=== PATIENT | female | born 1955 | race Caucasian/White ===

== ENCOUNTER 2021-11-18 22:48 | Inpatient (IN) | payer MEDICARE, SELFPAY ==
[2021-11-18 22:52] VITALS: PULSE 65; BMI 30.2
--- NOTE | 2021-11-18 23:26 | PCM.HP.STD ---
Documented by User: SOCO Wells 11/18/21 23:55 HPI - General General Date of Admission: 11/18/21 Date of Service: 11/18/21 Chief Complaint: Chest pain HPI Narrative SHIRA VALENZUELA, is a 66 F who presents from an outside ER with complaints of chest pain. Patient states that she was sitting watching TV when the chest pain began and it felt more like pressure like someone sitting on her chest as well as concurrent shortness of breath and diaphoresis. Patient denies any radiation of the pain to her jaw neck or arm and denies numbness and tingling. At outside facility patient received aspirin 324 mg x 1, nitroglycerin 0.4 sublingual x3 and was initiated on a heparin drip. Patient states that she has not been to a physician in approximately 15 years and therefore does not know if she has any cardiac issues. Patient states that she is fearful of physicians and so she is just avoided them. Upon arrival to the floor patient vital signs are stable and she said her chest pain remains despite the administration of 3 doses of nitro. PFSH Allergy/AdvReac Type Severity Reaction Status Date / Time No Known Allergies Allergy Verified 11/18/21 23:06 Family History Sister Breast cancer Surgical History Hx of tonsillectomy Hx of tubal ligation Surgical History no surgical history no surgical history Social History Smoking Status: Current every day smoker tobacco type: cigarettes substance use type: does not use ROS Constitutional Constitutional: Denies anorexia, chills, fatigue, fever(s), malaise or weakness Cardiovascular Cardiovascular: Reports chest pain at rest, diaphoresis and dyspnea; Denies edema, nausea or radiating jaw, neck or arm pain Respiratory/Chest Respiratory/Chest: Denies cough or wheezing Gastrointestinal Gastrointestinal: Denies abdominal pain, constipation, diarrhea, nausea or vomiting Genitourinary Genitourinary: Denies dysuria Musculoskeletal Musculoskeletal: Denies back pain, extremity pain, joint pain, joint stiffness or joint swelling Integumentary Integumentary: Denies dry skin Neurologic Neurologic: Denies abnormal gait, abnormal speech, confusion or dizziness Psychiatric Psychiatric: Denies anxiety or depression Endocrine Endocrinology: Denies change in body appearance Hematologic/Lymphatic Hematologic/Lymphatic: Denies anemia Vital Signs Vital Signs Vital Signs: 11/18/21 22:52 Pulse Rate 65 Weight Weight: 175 lb 14.862 oz Body Mass Index (BMI) 30.2 Physical Exam Const alert, oriented x3 and no apparent distress General Appearance: cooperative HEENT normocephalic and head/scalp atraumatic Eyes conjunctivae normal and no scleral icterus Neck supple General: trachea midline Lymph Lymphatic: no lymphadenopathy noted Resp normal respiratory effort, normal air movement and clear to auscultation bilaterally Cardio regular rate, regular rhythm, S1 normal heart sound, S2 normal heart sound and peripheral pulses 2+ throughout GI normal to inspection, nondistended, normoactive bowel sounds, soft to palpation and non-tender Extremity normal capillary refill and no clubbing, cyanosis or edema General Extremity: no tenderness to palpation of joints or extremities Skin General Skin Exam: no breakdown and turgor normal Lesions: no lesions Rashes: no rashes Neuro no focal motor deficits and no sensory deficits noted Speech: speech normal Motor Exam: Negative for general weakness Psych thought process normal, cooperative and affect normal Appearance: appropriate Assessment & Plan Assessment/Plan (1) Chest pain: QUALIFIERS: Chest pain type: unspecified Qualified Code(s): R07.9 - Chest pain, unspecified (2) Elevated troponin: PLAN: 1. Chest pain with elevated troponin -Admit to PCU stepdown for cardiac monitoring -Trend cardiac enzymes, 48, 677, 5991 -Consult cardiology, case discussed with Dr. Thompson, plans for heart catheterization in a.m. -Cardiac diet ordered, n.p.o. at midnight -Heparin drip initiated at outside facility per cardiology instruction, will continue with PTTs per protocol -Aspirin 81 mg p.o. daily -Atorvastatin 40 mg p.o. nightly ordered at instruction of cardiology -As needed Zofran and morphine ordered for chest pain -Nitroglycerin drip initiated -CBC, CMP, BNP, hemoglobin A1c, lipid profile, TSH ordered for a.m. -Twelve-lead EKG ordered every morning as well as as needed -Oxygen per protocol -Daily weights -Echocardiogram ordered for a.m. -Labs reviewed from outside facility within normal limits. DVT prophylaxis-patient on heparin drip This patient was seen by SOCO Wells under the supervision of Dr. Pelaez. 30 minutes spent in clinical coordination of patient's plan of care. Documented by User: Dr. Ravi Pelaez MD 11/19/21 00:34 HPI - General General Date of Admission: 11/18/21 PFSH Allergy/AdvReac Type Severity Reaction Status Date / Time No Known Allergies Allergy Verified 11/18/21 23:06 Family History Sister Breast cancer Surgical History Hx of tonsillectomy Hx of tubal ligation Surgical History no surgical history Social History Smoking Status: Current every day smoker tobacco type: cigarettes substance use type: does not use Charges/Coding Addendum Addendum: Patient is a 66-year-old female with a significant history of tobacco abuse who does not see a doctor and who presented to outside hospital ED with excruciating substernal chest pain that started on the same day of presentation. The pain radiated to her left upper arm The pain improves with belching. There are no aggravating factors to the pain. The pain started when patient was at rest watching TV. Outside hospital EKG shows some abnormality so the plan was to transfer patient to our hospital for further work-up. Repeat troponin at outside hospital was severely elevated. ED doc discussed the case with sterile processing technologist on-call at our hospital. Physical exam: General: Well-nourished, well-developed. Head: Normocephalic, atraumatic, no tenderness Eyes: PERRLA, EOMI ENT, no trauma, moist mucous membranes, no rhinorrhea Neck: Nontender, full range of motion, no spinal tenderness, deformities, step-off CVS: Regular rate and rhythm. S1-S2 present. No murmur, gallop or rub. Respiratory : Tachypnea; clear to auscultation bilaterally, chest wall nontender, no wheezing Abdomen: Soft, nontender, nondistended, normal bowel sounds, no masses : Deferred Back: Nontender, no CVA tenderness, no midline spinal tenderness, deformities, step-offs Extremities: Nontender full range of motion, no trauma Skin: Normal color, no trauma, abrasions Neuro: Alert, oriented, cranial nerves II through XII grossly intact. Psychiatry: Normal mood. Normal affect. Not depressed. Not anxious. Non STEMI Chest x-ray obtained at outside hospital ED was visualized and independently interpreted: No acute cardiopulmonary process noted Actual EKG tracing was independently visualized showed ST/T wave inversions in inferior leads particularly aVL. Outside hospital labs reviewed showed initial troponin of 48.7 (normal 0-51.4). Repeat troponin was 677. High sensitivity troponin at our hospital was 5991. ASA 81 mg p.o. daily ordered. Placed on heparin drip and nitroglycerin drip. Morphine as needed for pain ordered We will check lipid panel. Statin: Lipitor ordered. Trend CBC and CMP Cardiology consult. Tobacco abuse Counselled. DVT Prophylaxis: Not indicated as patient has been started on Heparin drip. Visit Charges Inpatient E&M: 95664 Init Hosp L3
[2021-11-18 23:40] LABS: Magnesium 2.4 mg/dL (1.6-2.6); Troponin-I HS 5991 pg/mL (3.0-54.0)
[2021-11-18] MEDS: HEPARIN/D5w 25,000 UNITS 25,000 UNITS/250 ML IV.SOLN. 11 UNITS IV (23:41)
[2021-11-18 23:42] VITALS: BP 117/62
[2021-11-18] MEDS: Nitroglycerin Infusion 250 ML 3 MG IV (23:42)
[2021-11-18] MEDS: 0.9% Normal Saline 1,000 ML 100 ML IV (23:43)
[2021-11-19] VITALS (23 sets, daily range): BP systolic 97–121; BP diastolic 55–104; PULSE 66–83; RESP 16–20; TEMP 36.4–36.6; O2SAT 94–98
[2021-11-19 04:11] LABS: Hematocrit 39.2 % (37-47); Hemoglobin 13.5 g/dL (12.0-15.0); Mean Corp Hgb Conc 34.4 g/dL (32-36); Mean Corpuscular Hgb 30.7 pg (27.0-32.0); Mean Corpuscular Volume 89.1 fL (81-99); Mean Platelet Vol. 9.8 fl (6.2-12.0); Platelet Count 205 K/mm3 (150-450); RBC Distribution Width CV 13.2 % (11.6-14.6); RBC Distribution Width SD 42.8 fl (35.1-43.9); White Blood Count 7.7 K/mm3 (4.4-11.0)
[2021-11-19 04:36] LABS: BNP,B-Type NATRIURETIC PEPTIDE 142.6 pg/mL (0-100)
[2021-11-19 04:38] LABS: ALB/GLOB Ratio 0.8 RATIO (0.9-2.4); AST(SGOT) 181 U/L (15-37); Alanine Aminotransfer ALT/SGPT 100 U/L (13-56); Albumin, Serum 3.2 g/dL (3.2-5.0); Alkaline Phosphatase 78 U/L (45-117); Anion Gap 5 (5-15); BUN 15 mg/dL (7-18); BUN/Creat Ratio 19.3 RATIO (10-20); Calcium,Total 8.1 mg/dL (8.5-10.1); Chloride 111 mmol/L (98-107); Cholesterol 229 mg/dL (200); Creatinine, Serum 0.78 mg/dL (0.55-1.02); EST Glomerular Filtration Rate 79 mL/min (>60); Est Glom Filt Rate - Afr Amer 95 mL/min (>60); Estimated Creatinine Clearance 47.14 ml/min; Globulin 4.2 g/dL (2.2-4.2); Glucose 102 mg/dL (74-106); High Density Lipoprotein 53 mg/dL; Potassium 3.6 mmol/L (3.5-5.1); Protein, Total 7.4 g/dL (6.4-8.2); Sodium Level 142 mmol/L (136-145); Thyroid Stim Hormone (TSH) 3.88 uIU/mL (0.358-3.74); Triglycerides 109 mg/dL; Very Low Density Lipoprotein 22 mg/dL (5-40)
--- NOTE | 2021-11-19 05:55 | ECHOD_ITS ---
Reason For Study: CHEST PAIN Procedure This was a 2D Doppler, Color Flow transthoracic echocardiogram. Patient in supine position during exam. Exam performed portable in ICU/CCU. Left Ventricle Normal LV size. Left ventricular systolic function is normal. The estimated ejection fraction is 65 %. Stage 1 diastolic dysfunction. No regional wall motion abnormalities noted. Right Ventricle Normal RV size. Normal systolic function. Atria Normal left atrium. Normal right atrium. Mitral Valve Normal mitral valve. Mild-Moderate (1-2+) mitral valve insufficiency. Tricuspid Valve Normal tricuspid valve. Mild (1+) tricuspid valve insufficiency. Pulmonary artery systolic pressure is 44 mmHg. Aortic Valve Trisinus/trileaflet aortic valve. Moderate focal aortic valve calcification. Peak aortic valve gradient 63 mmHg. Mean aortic valve gradient 41 mmHg. Severe aortic stenosis. Pulmonic Valve Normal pulmonic valve. Great Vessels Normal aortic root. The pulmonary artery is normal size. Normal inferior vena cava. Pericardium/Pleural No pericardial effusion. MMode/2D Measurements & Calculations LVIDd: 4.3 cm IVSd: 0.85 cm LVOT diam: 2.0 cm LVIDs: 3.2 cm LVPWd: 0.88 cm LVOT area: 3.1 cm2 RVDd: 3.4 cm FS: 27.1 % Ao root diam: 3.1 cm LAV(MOD-bp): 41.8 ml LVAd ap4: 31.4 cm2 LAV(MOD-bp) Indexed: 22.6 ml/m2 LVLd ap4: 8.3 cm LAV(MOD-sp2): 41.7 ml EDV(MOD-sp4): 95.1 ml LAV(MOD-sp4): 41.5 ml EDV(sp4-el): 101.3 ml LVAs ap4: 17.2 cm2 LVLs ap4: 6.7 cm ESV(MOD-sp4): 36.8 ml ESV(sp4-el): 37.1 ml EF(MOD-sp4): 61.3 % EF(sp4-el): 63.4 % SV(MOD-sp4): 58.3 ml SV(sp4-el): 64.2 ml LA A4 area: 15.9 cm2 LA dimension(2D): 3.2 cm RA A4 area: 10.9 cm2 Time Measurements MV dec time: 0.25 sec Doppler Measurements & Calculations MV E max johnson: 79.9 cm/sec Lat Peak E' Johnson: 9.9 cm/sec Med Peak E' Johnson: 5.8 cm/sec MV A max johnson: 100.4 cm/sec E/E' lat: 8.1 E/E' med: 13.8 MV E/A: 0.80 Ao V2 max: 396.6 cm/sec LV V1 max: 85.8 cm/sec SV(LVOT): 61.7 ml Ao max P.0 mmHg LV V1 max P.9 mmHg Ao V2 mean: 307.6 cm/sec LV V1 mean P.7 mmHg Ao mean P.8 mmHg LV V1 mean: 61.2 cm/sec Ao V2 VTI: 104.2 cm LV V1 VTI: 19.9 cm RODRIGUEZ(I,D): 0.59 cm2 RODRIGUEZ(V,D): 0.67 cm2 PA V2 max: 86.9 cm/sec TR max johnson: 314.2 cm/sec TR max P.5 mmHg ECHO/Echo Complete Interpretation Summary Normal LV size. Left ventricular systolic function is normal. The estimated ejection fraction is 65 %. Mild-Moderate (1-2+) mitral valve insufficiency. Stage 1 diastolic dysfunction. Pulmonary artery systolic pressure is 44 mmHg. Severe aortic stenosis. Ordering Physician: Kimberly Chaney Performed By: Margy Bañuelos RDCS
[2021-11-19 07:34] LABS: Hemoglobin A1c 5.3 % (3.8-5.6)
--- NOTE | 2021-11-19 08:12 | PCM.CONS.C ---
Assessment & Plan Assessment/Plan (1) Non-ST elevation (NSTEMI) myocardial infarction: PLAN: She presents with a non-ST elevation myocardial infarction. She has no previous risk factors, other than smoking which she continues to do. My recommendations at this time will be as follows. : Start aspirin Start a beta-marquita with Toprol-XL 25 mg a day High intensity statin We will schedule a cardiac catheterization within the next few hours. The risks benefits and alternatives have been explained to her she understands and agrees to proceed. Depending on the results further recommendations will be made. Addendum: Cardiac catheterization demonstrated the following: Short normal left main coronary artery. Left anterior descending artery with moderate 50% mid segment stenosis. First diagonal vessel with 90% proximal stenosis. Left circumflex artery which is a large vessel with proximal 70% stenosis and 2 obtuse marginal branches which collateralized with the right coronary artery system. The second obtuse marginal branch has a 80% ostial stenosis. The circumflex artery continues to a large obtuse marginal branch which is totally occluded with distal ghost collateral filling Dominant right coronary artery which is totally occluded proximally with [id number] collaterals Calcified aortic valve with moderate stenosis.-We will confirm on echocardiogram Mildly reduced left ventricular systolic function estimated at 50%. Based on the above angiographic, hemodynamic, and other findings would recommend surgical evaluation for coronary bypass surgery plus or minus aortic valve replacement. Arrangements will be made to transfer the patient to a tertiary care facility [facility]. Above discussed with interventional cardiology. Thank you for allowing me to participate in the care of your patient. Please don't hesitate to call if any issues arise. HPI Consult Data Date of Consult: 11/19/21 HPI Narrative HPI Narrative: SHIRA VALENZUELA, is a 66 F who presents from an outside ER with complaints of chest pain. Patient states that she was sitting watching TV when the chest pain began and it felt more like pressure like someone sitting on her chest as well as concurrent shortness of breath and diaphoresis. She says that she has not visited any physician in years. Patient denies any radiation of the pain to her jaw neck or arm and denies numbness and tingling. At outside facility patient received aspirin 324 mg x 1, nitroglycerin 0.4 sublingual x3 and was initiated on a heparin drip. Patient states that she has not been to a physician in approximately 15 years and therefore does not know if she has any cardiac issues. Patient states that she is fearful of physicians and so she is just avoided them. Upon arrival to the floor patient vital signs are stable and she said her chest pain remains despite the administration of 3 doses of nitro. She was started on a nitroglycerin drip. Cardiac enzymes were obtained which were significantly abnormal and cardiology was consulted for further evaluation and management. She has not had any dizziness or near syncope. PFSH Allergy/AdvReac Type Severity Reaction Status Date / Time No Known Allergies Allergy Verified 11/18/21 23:06 Family History Sister Breast cancer Surgical History Hx of tonsillectomy Hx of tubal ligation Surgical History no surgical history Social History Smoking Status: Current every day smoker tobacco type: cigarettes substance use type: does not use ROS Constitutional Constitutional: Denies fever(s) or weight loss Eyes Eyes: Reports systems reviewed and no addt'l complaints, except as documented ENT HEENT: Reports systems reviewed and no addt'l complaints, except as documented Cardiovascular Cardiovascular: Reports chest pain at rest and chest pain with activity; Denies dyspnea at rest, dyspnea on exertion, edema, palpitations or paroxysmal nocturnal dyspnea Respiratory/Chest Respiratory/Chest: Denies dyspnea on exertion, productive cough, shortness of breath at rest or shortness of breath with exertion Gastrointestinal Gastrointestinal: Denies change in bowel habits, nausea, vomiting or weight changes Genitourinary Genitourinary: Denies difficulty urinating Musculoskeletal Musculoskeletal: Denies joint stiffness or muscle weakness Integumentary Integumentary: Denies lesions Neurologic Neurologic: Denies dizziness or syncope Psychiatric Psychiatric: Denies anxiety Endocrine Endocrinology: Denies excessive sweating or fatigue Hematologic/Lymphatic Hematologic/Lymphatic: Denies anemia Allergic/Immunologic Allergic/Immunologic: Denies seasonal rhinorrhea Physical Exam Const alert, oriented x3 and no apparent distress General Appearance: cooperative HEENT hearing grossly normal bilaterally Head and Scalp: atraumatic Eyes EOMs intact bilaterally Neck General: normal visual inspection Chest inspection of chest normal and palpation of chest normal Resp normal respiratory effort Auscultation: clear to auscultation bilaterally Cardio regular rate, regular rhythm, S1 normal heart sound and S2 normal heart sound Jugular Venous Distention: JVD GI normal to inspection, nondistended, normoactive bowel sounds Extremity normal capillary refill and no pedal edema Peripheral Pulses: Yes pulses 2+ throughout and femoral pulses present Skin no rashes or lesions noted Neuro oriented x3 and CN's II-XII intact bilaterally Psych Appearance: grossly normal and appropriate Risk Stratification Risk Stratification Applicable: Yes Age >/= 65: Yes >/= 3 CAD Risk Factors (HTN, HLD, DM, family hx of CAD, or current smoker): No Aspirin Use in the Past 7 Days: No Severe Angina (>/= episodes in 24 hours): Yes EKG ST Changes >/= 0.5mm: No Positive Cardiac Marker: Yes KANG Risk Stratification Score: 3 KANG % Risk: 13% Risk Objective Data Vital Signs: Vital Signs Pulse Resp BP Pulse Ox 66 16 120/73 96 11/19/21 06:00 11/19/21 06:00 11/19/21 06:00 11/19/21 06:00 Oxygen Delivery Method Room Air Weight: 172 lb 13.478 oz Body Mass Index (BMI) 30.2 Intake & Output: Intake and Output for Last 24 Hours 11/17/21 11/18/21 11/19/21 23:59 23:59 23:59 Intake Total 71.32 / 71.32 Output Total 700 / 700 Balance -628.68 / -628.68 Lab / Micro Data Result Diagrams: 11/19/21 04:00 11/19/21 04:00 Labs: Laboratory Results - last 24 hr 11/18/21 23:13: Magnesium 2.4, Troponin I High Sens 5991 H* 11/19/21 04:00: WBC 7.7, RBC 4.40, Hgb 13.5, Hct 39.2, MCV 89.1, MCH 30.7, MCHC 34.4, RDW Std Deviation 42.8, RDW Coeff of Asha 13.2, Plt Count 205, MPV 9.8 11/19/21 04:00: Sodium 142, Potassium 3.6, Chloride 111 H, Carbon Dioxide 26.0, Anion Gap 5, BUN 15, Creatinine 0.78, Estim Creat Clear Calc 47.14, Est GFR (MDRD) Af Amer 95, Est GFR (MDRD) Non-Af 79, BUN/Creatinine Ratio 19.3, Glucose 102, Calcium 8.1 L, Total Bilirubin 0.50, AST 181 H, ALT 100 H, Alkaline Phosphatase 78, Total Protein 7.4, Albumin 3.2, Globulin 4.2, Albumin/Globulin Ratio 0.8 L, Triglycerides 109, Cholesterol 229 H, LDL Cholesterol 154 H, VLDL Cholesterol 22, HDL Cholesterol 53, TSH 3.88 H 11/19/21 04:00: Hemoglobin A1c 5.3 11/19/21 04:00: B-Natriuretic Peptide 142.6 H 11/19/21 04:00: APTT 68.0 H Cardiology Labs/Tests 11/18/21 23:13: Magnesium 2.4 11/19/21 04:00: WBC 7.7, RBC 4.40, Hgb 13.5, Hct 39.2, MCV 89.1, MCH 30.7, MCHC 34.4, Plt Count 205, MPV 9.8 11/19/21 04:00: Sodium 142, Potassium 3.6, Chloride 111 H, Carbon Dioxide 26.0, Anion Gap 5, BUN 15, Creatinine 0.78, Est GFR (MDRD) Af Amer 95, Est GFR (MDRD) Non-Af 79, BUN/Creatinine Ratio 19.3, Glucose 102, Calcium 8.1 L, Total Bilirubin 0.50, Triglycerides 109, Cholesterol 229 H, LDL Cholesterol 154 H, VLDL Cholesterol 22, HDL Cholesterol 53 11/19/21 04:00: Hemoglobin A1c 5.3 11/19/21 04:00: B-Natriuretic Peptide 142.6 H 11/19/21 04:00: APTT 68.0 H Rhythm: EKG: Normal sinus rhythm with no acute changes ECHO: Stress Test: Cardiac Cath: PCI: CT Surgery: Holter monitor: EPS: PPM: CXR: Chest CT Scan:
[2021-11-19] MEDS: Aspirin E.C. 81 MG Tablet PO (08:54)
[2021-11-19] MEDS: 0.9% Normal Saline 1,000 ML 100 ML IV (08:57)
--- NOTE | 2021-11-19 09:20 | NURSING ---
Parachute Taper RN at bedside, report given and patient transported to labor union business representative for procedure.
--- NOTE | 2021-11-19 10:00 | EKG12_ITS ---
Test Reason : PRE HEART CATH Blood Pressure : / mmHG Vent. Rate : 069 BPM Atrial Rate : 069 BPM P-R Int : 162 ms QRS Dur : 080 ms QT Int : 398 ms P-R-T Axes : 065 035 091 degrees QTc Int : 426 ms Normal sinus rhythm Normal ECG No previous ECGs available Confirmed by EDWIGE BELTRÁN, MITA ([id number]), brands editor CHAYO MG ([id number]) on 11/23/2021 1:53:01 PM Referred By: RASHEED Confirmed By:STEPHAN GIBBONS MD
--- NOTE | 2021-11-19 11:02 | CL.D_ITS ---
Patient Name: SHIRA VALENZUELA Study Date: 11/19/2021 Performing: Miki Mendoza MD Ht: 64.17 inches 163 cm : 1955 Wt: 171.96 lbs 78 kg Age: 66 Gender: female BSA: 1.84 PROCEDURE(S) PERFORMED DC01-(50068)LHC/COR/LV CLINICAL PROFILE AND INDICATIONS Indications: ACS <= 24 hrs Heart Failure: None Stress/Imaging Stress/Image Study Performed: No CONCLUSIONS Severe coronary artery disease in the face of a non-STEMI with severe disease of the diagonal vessel, totally occluded right coronary artery, severely diseased left circumflex artery and moderate aortic stenosis. RECOMMENDATIONS Surgery consult for coronary revascularization Surgery consult for Valve Replacement surgery DESCRIPTION OF PROCEDURE The patient arrived to the procedure lab. The risks and benefits of the procedure as well as a full d escription of our services here and current unavailability of surgical backup were fully explained to the patient and/or their significant other prior to the catheterization. The Timeout was completed, verifying the correct patient and procedure. The patient's procedural site was prepped and draped in the usual fashion. Local anesthetic was given subcutaneously to right radial region with Lidocaine 2% . Local anesthetic was given subcutaneously to right groin region with Lidocaine 2%. Using a modified Seldinger technique, arterial access was obtained via the right radial artery, a 6Fr sheath was inse rted., arterial access was obtained via the right femoral artery, a 5Fr sheath was inserted. Left Co ronary Artery selective angiography was performed in multiple views using a 5 Fr. 4.0 Anderson catheter. unable to engage coronary arteries. abort radial. obtain femerol access. Left Coronary Artery selective angiography was performed in multiple views using a 5 Fr. JL4 catheter. Right Bernstein ry Artery selective angiography was then performed in multiple views using a 5 Fr. 3DRC (Cooper ca theter. Left Ventriculography was performed in DAVIES projection using a 5 Fr. Pigtail catheter. LV to A O pullback pressures were then recorded.The arterial sheath was pulled and a TR Band was applied for hemostasis. 10cc of air applied. The arterial sheath was pulled and manual compression applied until hemostasis is achieved. CORONARY ANGIOGRAPHY DOMINANCE: Right Dominant LEFT HEART ASSESSMENT Left Ventricular Ejection Fraction: by LV Gram 50 % Normal LV wall motion Normal Left Ventricular systolic function Elevated Left Ventricular End Diastolic Pressure LEFT MAIN: Angiographically normal LEFT ANTERIOR DESCENDING ARTERY: Moderate mid segment 50 to 60% stenosis DIAGONAL 1: Proximal - Long 90% stenosis CIRCUMFLEX ARTERY: Proximal circumflex artery with 70% eccentric stenosis and 2 obtuse marginal branc hes with a second branch having an 80 to 90% ostial stenosis. The vessel then continues to a large o btuse marginal branch which is subtotally occluded. Collaterals are seen from the obtuse marginal br anch to the distal right coronary artery all the way up to the mid segment RIGHT CORONARY ARTERY: Totally occluded proximal right coronary artery VALVE FINDINGS: Aortic Valve Calcification - moderate Aortic Valve Stenosis - moderate COMPLICATIONS No Complications PROCEDURE MEDICATIONS Fentanyl 25 mcg IV Versed .05 mg IV Versed 1 mg IV Oxygen: 2 L/min via nasal cannula Heparin given IA 11/19/2021 10:11:21 Nitro glycerin 25mg / 250ml D5W @ 5 mcg/min IV on arrival from ICU 11/19/2021 09:36:38 Nitro glycerin 25mg / 250ml D5W @ 0 mcg/min discontinued 11/19/2021 10:48:13 SUMMARY OF HEMODYNAMIC DATA Time AIR REST ECG 09:34:18 Art 135/69 (94) 10:04:40 AO 127/72 (93) SA 10:19:49 LV 163/22, 38 10:43:08 LV 163/21, 34 10:43:14 LV 162/14, 30 10:44:16 LV 165/22, 31 10:44:27 LVp 156/17, 28 10:44:35 AOp 128/73 (96) 10:44:40 Signed By Miki Mendoza MD On 11/19/2021 11:01:14 Miki Mendoza MD
[2021-11-19] MEDS: 0.9% Normal Saline 1,000 ML 60 ML IV (11:51)
--- NOTE | 2021-11-19 12:19 | DS.PCM_ITS ---
Providers Date of Admission: 11/18/21 Date of Discharge: 11/19/21 Primary Care Physician: Aleah Primary Care Phys Consultations 11/18/21 22:52 Consult: Cardiology Routine Consulting Provider: Marielle Thompson Reason for Consult: Chest pain, elevated trop EMERGENT Consult: No MD Notified: Yes Date Notified: 11/18/21 Time Notified: 22:52 Method of Notification: Provider Initiated Method of Consult:: In-Person Reason For Visit: UNSTABLE ANGINA Diagnosis Discharge Diagnosis (1) Non-ST elevation (NSTEMI) myocardial infarction: Status: Acute Code(s): I21.4 - Non-ST elevation (NSTEMI) myocardial infarction Hospital Course Operations None Procedures Cardiac catheterization Summary of Care Provided Minutes Spent on Discharge: 39 Hospital Course: Mrs. Rivers is a 66-year-old white female who presented to an outside facility emergency department on 11/18/2021 with a chief complaint of chest pain. The patient reported that she was sitting watching TV when the chest pain began and it felt like pressure and that someone sitting on her chest. She had associated shortness of breath and diaphoresis. She denied any radiation of the pain. She did indicate that she had been having symptoms on and off of chest like pressure for a few weeks but had been ignoring them. The patient does not follow regularly with physicians as she is fearful of them and just avoids them. At the outside facility emergency department she received a full dose aspirin, sublingual nitro x3 and was initiated on a heparin drip. Her EKG showed abnormalities and while her initial troponin was within normal range a repeat troponin was elevated and she was therefore transferred to our facility after the case was discussed with the low altitude air defense officer on-call. She was maintained on a heparin drip and was taken to the cardiac [facility] on the morning of 11/19/2021 where she was found to have severe coronary artery disease in the diagonal as well as a totally occluded RCA and a severely diseased left circumflex. She was also found to have moderate aortic stenosis. Lipids were obtained during her hospitalization she was found to have a total cholesterol of 229 with an LDL of 154 and HDL of 53 and a VLDL of 22. She was also found to have transaminitis with an ALT of 100 and AST of 181. The etiology of this is unclear at this time. She was maintained on a statin however I would recommend further work-up with regards to these. Given these findings the case was discussed with cardiothoracic surgery at [facility] (Dr. Capone) who recommended transfer to the medical service with consultation to cardiothoracic surgery. She was felt to be stable for the telemetry for and was accepted for transfer by Dr. Bravo at [facility]. She was discharged to [facility] on 11/19/2021 for further cardiac intervention. Discharge diagnoses: NSTEMI Severe diffuse coronary artery disease Moderate aortic stenosis Hyperlipidemia Transaminitis BNP elevation Tobacco abuse Marked kyphoscoliosis Physical Exam Const alert, oriented x3 and no apparent distress Constitutional Narrative: Overweight upper middle-aged white female who appears older than the stated age, sitting up in bed, nontoxic, appears comfortable at this time, currently denying chest pain General Appearance: cooperative, comfortable, well kempt and well developed Orientation / Consciousness: awake Exam Limitations: no limitations Nutritional Appearance: overweight HEENT normocephalic, head/scalp atraumatic, hearing grossly normal bilaterally and moist oral mucous membranes HEENT Narrative: Dentition is fair, Mallampati is 2-3, no thrush Eyes PERRL, EOMs intact bilaterally and conjunctivae normal Eyes Narrative: Scleral icterus Neck no lymphadenopathy, supple and no JVD Neck Narrative: Trachea midline, no thyroid enlargement Resp normal respiratory effort, no retractions, no use of accessory muscles and clear to auscultation bilaterally Resp Narrative: Marked thoracic kyphoscoliosis with right rotation and left side bending, markedly diminished diffusely with few scattered end expiratory wheeze Auscultation: wheezes; Negative for crackles, rales or rhonchi Cardio regular rate, regular rhythm, S1 normal heart sound, S2 normal heart sound, no r ub, no gallops, no clicks and no JVD; Negative for no murmurs Cardio Narrative: 2 out of 6 to 3 out of 6 systolic murmur GI normal to inspection, nondistended, normoactive bowel sounds, soft to palpation, non-tender and non-distended Extremity no clubbing, cyanosis or edema Skin no rashes or lesions noted, no wounds, skin turgor normal and no jaundice Neuro oriented x3, CN's II-XII intact bilaterally, moves all extremities, no focal motor deficits and no sensory deficits noted Sensorium / Orientation: awake and alert Speech: speech normal Psych affect normal Weight / BMI Weight Weight: 78.4 kg Body Mass Index (BMI) 30.2 ABG / Lab / Microbiology Data Result Diagrams: 11/19/21 04:00 11/19/21 04:00 Laboratory: Laboratory Results - last 24 hr 11/18/21 23:13: Magnesium 2.4, Troponin I High Sens 5991 H* 11/19/21 04:00: WBC 7.7, RBC 4.40, Hgb 13.5, Hct 39.2, MCV 89.1, MCH 30.7, MCHC 34.4, RDW Std Deviation 42.8, RDW Coeff of Asha 13.2, Plt Count 205, MPV 9.8 11/19/21 04:00: Sodium 142, Potassium 3.6, Chloride 111 H, Carbon Dioxide 26.0, Anion Gap 5, BUN 15, Creatinine 0.78, Estim Creat Clear Calc 47.14, Est GFR (MDRD) Af Amer 95, Est GFR (MDRD) Non-Af 79, BUN/Creatinine Ratio 19.3, Glucose 102, Calcium 8.1 L, Total Bilirubin 0.50, AST 181 H, ALT 100 H, Alkaline Phosphatase 78, Total Protein 7.4, Albumin 3.2, Globulin 4.2, Albumin/Globulin Ratio 0.8 L, Triglycerides 109, Cholesterol 229 H, LDL Cholesterol 154 H, VLDL Cholesterol 22, HDL Cholesterol 53, TSH 3.88 H 11/19/21 04:00: Hemoglobin A1c 5.3 11/19/21 04:00: B-Natriuretic Peptide 142.6 H 11/19/21 04:00: APTT 68.0 H Meaningful Use Info Meaningful Use Diagnoses (Choose all that apply): AMI AMI/Post PCI/Angioplasty Aspirin given w/in 24hrs of arrival?: Yes ASA at discharge?: Yes Statins at discharge?: Yes Jaylen/ARB at discharge?: No Reason Jaylen/ARB not ordered:: Hypotension Beta Duc at discharge?: No Reason Beta Duc not ordered:: Hypotension Done w/ Acute IL measure.: Yes Discharge Plan Admission Admit Date/Time: 11/18/21 23:48 Primary Reason for Your Visit: Chest pain Attending Provider: Rula Malik Primary Care Provider: Care Physician,No Primary Consulting Providers: Marielle Thompson Discharge Orders/Prescriptions Referrals / Follow Up: Care Physician,No Primary [Primary Care Provider] - Disposition Discharge Orders: Discharge Patient (Routine); Ordered 11/19/21 Ordered By: Dr. Miki Mendoza Charges/Coding Visit Charges Inpatient E&M: 23843 Disch Hosp
--- NOTE | 2021-11-19 14:10 | CASEMGMT ---
[facility] is in-network with patient's insurance.
--- NOTE | 2021-11-19 16:18 | NURSING ---
[facility] personnel at bedside preparing patient for transport to [facility]. Patient awake, alert and oriented, verbalizes understanding of why she is being transferred. Patient's at bedside, Address for [facility] and directions given.
== END 2021-11-19 16:35 | disposition short-term general hospital (02) | DRG 282 ==
PROVIDERS: Nurse Practitioner Family; Admitting Provider Hospitalist; Visit Provider Internal Medicine
DX: I21.4 Non-ST elevation (NSTEMI) myocardial infarction (principal); E66.3 Overweight; E78.5 Hyperlipidemia, unspecified; F17.210 Nicotine dependence, cigarettes, uncomplicated; I25.10 Atherosclerotic heart disease of native coronary artery without angina pectoris; I35.0 Nonrheumatic aortic (valve) stenosis; M41.9 Scoliosis, unspecified; R74.01 Elevation of levels of liver transaminase levels; Z68.30 Body mass index [BMI] 30.0-30.9, adult
CPT/HCPCS: 80053; 80061; 83036; 83735; 83880; 84443; 84484; 85027; 85730; 93005; 93306; 93458; 99152; 99153; J7030; C1769; C1894

== ENCOUNTER → 2022-02-14 | Outpatient (CLI) | payer MEDICARE, SELFPAY ==
[2022-02-14 11:08] LABS: Anion Gap 8 (5-15); BUN 15 mg/dL (7-18); BUN/Creat Ratio 16.3 RATIO (10-20); Calcium,Total 8.8 mg/dL (8.5-10.1); Chloride 104 mmol/L (98-107); Creatinine, Serum 0.92 mg/dL (0.55-1.02); EST Glomerular Filtration Rate 64 mL/min (>60); Est Glom Filt Rate - Afr Amer 78 mL/min (>60); Glucose 107 mg/dL (74-106); Magnesium 2.3 mg/dL (1.6-2.6); Potassium 4.2 mmol/L (3.5-5.1); Sodium Level 139 mmol/L (136-145)
== END | disposition home or self-care (01) ==
LOC: LAB 09:59
PROVIDERS: PCP Nurse Practitioner; Referring Provider Internal Medicine Cardiovascular Disease; Visit Provider Internal Medicine Cardiovascular Disease
DX: Z95.3 Presence of xenogenic heart valve (principal); Z49.02 Encounter for fitting and adjustment of peritoneal dialysis catheter
CPT/HCPCS: 36415; 80048; 83735

== ENCOUNTER → 2022-03-13 | Outpatient (CLI) | payer MEDICARE, SELFPAY ==
--- NOTE | 2022-03-13 13:06 | CR.HP_ITS ---
CR - History & Physical - General Arrival date:: 03/13/22 Arrival time:: 13:06 Date of Referral:: 02/14/22 Date of CR Evaluation:: 03/13/22 Referring Physician: Dr. Miki Mendoza Primary Diagnosis: CABG - History of Present Cardiac Event Onset Date: Enter Onset Date of cardiac illnesses in Comment field below Acute Myocardial Infarction within 12 months:: Yes Coronary Artery Bypass Graft:: Yes - 11/19/2021 - Sleep Disorder Evaluation Hx of Sleep Apnea: No Do you snore loudly (louder than talking or can be heard through closed doors)?: No Do you often feel tired/ fatigued/ sleepy during daytime?: No Has anyone observed you stop breathing during sleep?: No History of Hypertension (for STOP score): No STOP Results: Negative - Medications Home Medications: Ambulatory Orders Medication Instructions Recorded allopurinol 100 mg tablet 100 mg PO DAILY 02/13/22 aspirin 81 mg chewable tablet 1 tab PO DAILY 02/13/22 atorvastatin 20 mg tablet 20 mg PO DAILY 02/13/22 clopidogrel 75 mg tablet 75 mg PO DAILY 02/13/22 mirtazapine 15 mg tablet 15 mg PO QHS 02/13/22 - Allergies Allergies/Adverse Reactions: Allergies No Known Allergies Allergy (Verified 01/29/22 13:04) Advanced Directives - Advanced Directives Power of Flat Spring Assembler: No Living Will: No Advance Directives Information Provided: Yes Advance Directives on File: No DNR Order?:: No Past Medical History - Covid-19 Screening Fever: No Unexplained muscle aches: No Current respiratory symptoms: No Upper respiratory infections symptoms: No Gastro-intestinal symptoms: No [id number]-[id number] symptoms: No Has tested positive for COVID-19 in last 30 days: No Had contact w/person w/symptoms or Covid-19 (+) last 14 days: No Has High Risk Exposures ID'd by Health dept/Inf Control team: No 65 years or older:: No Lives in Assisted Living facility:: No Has a chronic lung disease or moderate to severe asthma:: No Has a serious heart condition:: Yes Immunocompromised:: No Severely obese (Body Mass Index of 40 or higher):: No Diabetic:: No Has chronic kidney disease undergoing dialysis:: No Has liver disease:: No - Past Medical Illness Medical History: Past Medical History (Last Reviewed 02/14/22 @ 16:[address] Miki Mendoza MD) Acute postoperative renal failure Onset Date: 11/2021 N99.0 on HD/ completed 12/[address] disease [address] [place] coronary artery without angina pectoris I25.10 History of non-ST elevation myocardial infarction (NSTEMI) Onset Date: 11/18/21 I25.2 Hyperlipidemia E78.5 Nonrheumatic aortic (valve) stenosis I35.0 Pleural effusion on right J90 THORACENTESIS 12/06/2021 600CC Postoperative atrial fibrillation I97.89, I48.91 - Past Surgical History Surgical History: Past Surgical History (Last Reviewed 02/14/22 @ 16:[address] Miki Mendoza MD) H/O coronary artery bypass surgery Onset Date: 11/26/21 Z95.1 CABG X 4 DEL VALLE-LAD, SVG-D1, SEQUENTIAL SVG-OM2 AND RPDA 11/26/2021 History of aortic valve replacement with bioprosthetic valve Onset Date: 11/26/21 Z95.3 AORTIC VALVE REPLACEMENT, #21 TRIFECTA PERICARDIAL VALVE. 11/26/2021 History of left heart catheterization Onset Date: 11/19/21 Z98.890 History of thoracentesis Onset Date: 12/06/21 Z98.890 right 600 cc 12/06/2021 Hx of tonsillectomy Z90.89 Hx of tubal ligation Z98.51 - Family History Summary Family History: Family History (Last Reviewed 02/14/22 @ 16:[address] Miki Mendoza MD) Sister Breast cancer Social History - Smoking History Smoking Status: Former smoker Years Smokin Packs Smoked per Day: 0.5 Hx Smoking Cessation Date: 09/12/21 Hx Tobacco Use: Yes Hx Smoking Exposure: Yes - Alcohol Use Alcohol Usage: Yes - rare - Substance Abuse Hx Substance Use: No - Occupation Occupation (List type of work in comments):: Retired - Hobbies, Recreation, Social Activities Hobbies: Sewing Recreational Activities: I am able to engage in all my recreational activities Social Environment - Status Marital Status: - Current Living Arrangements Living Environment:: Spouse - Children How many children do you have?: 2 Do any of your children live nearby?: Yes - Safety Do you feel safe in your surroundings?: Yes - Assistance Do you need any assistance at home?: no Review of Systems - Review of Systems Hints: Right click = Denies ([place]ash). Left click = Reports ([place]) Review of Present Symptoms: Reports: Dizziness/Lightheadedness, Appetite - Normal. Denies: Shortness of Breath at Rest, Shortness of Breath with Exertion, PVD, Operative Discomfort, Angina, Wound Healing, Fatigue, Heart Arrhyt hmia/Irregularities, Appetite - Special Diet, Sleep - Normal, Sexual Changes - Pain Is Patient Pain Free?: Yes Risk Factor Assessment - Chief Complaint Chief Complaint: CABG - Vital Signs Pulse Ox: 97 - Pulse Pulse Rate: 74 Pulse Rhythm: Regular - Hypertension Blood Pressure Sitting - Right Arm: 124/70 - Obesity Height: 5 ft 4 in Weight:: 72.575 kg Weight in Pounds: 160.0 lbs Body Mass Index (BMI): 27.4 Nutritional Referral for Obesity: No - Physical Inactivity Physical Inactivity: Reg Exercise 30 min/day - Risk Stratification Risk Guidelines: Moderate Risk: Risk Factor for Smoking, Risk Factor for Dyslipidemia, Risk Factor for Diabetes, Risk Factor for Obesity, Risk Factor for Hypertension, Risk Factor for Sedentary Lifestyle, Risk Factor for Depression - Family History Family History: Family History (Last Reviewed 02/14/22 @ 16:[address] Miki Mendoza MD) Sister Breast cancer Motivation - Motivation to Participate On a scale of 1 to 10, how prepared are you to commit to attending program?: 10 What do you see as barriers to successfully being able to complete the program?: nothing What do you see as the benefits of succesfully completing the program? In other words, what do you hope to get out of participating in the program?: improved health an knowledge Are there issues you are dealing with that will interfere with completing the program?: recent cancer diagnosis Do you have a spouse or signficant other, family or friends who will help support you to complete the program?: yes
[2022-03-13 14:15] VITALS: BP 124/70; PULSE 74; O2SAT 97; BMI 27.4
--- NOTE | 2022-03-13 14:16 | PCM.CR.ITP ---
Diagnosis - General Information Admitting Diagnosis: CABG Personal Learning Style:: Audio/Visual, Demonstration, Group, Individual Preference, Written Stage of change r/t lifestyle modifications:: Contemplation Gave educational material for:: Treating Heart Disease, Emotions & Heart Disease, Stress Management & Relaxation, Sleep Disorders & Heart Disease, How The Heart Works, What it means to have Heart Disease, How Coronary Artery Disease is Diagnosed, Heart Procedures, What Heart Medications Do, Risk Factors & Modifications, Living an Active Life, Nutrition - Education/Goals Cardiac Rehabilitation Goals: 1. Maintain the individual as the primary focus of care. 2. To improve the patient's quality of life. 3. Identification of cardiac risk factors and provide cardiac risk factor management. 4. Enhance the psychosocial status of the patient. 5. Reconditioning enough to allow the patient to resume customary activities. 6. Control symptoms of cardiac disease Personal Goals: Initial Assessment: Improve energy level, Improve muscle strength and endurance Scale for measuring improvement of personal goals: Enter appropriate number in Comments. 2 = Unchanged. 3 = Slightly Better. 4 = Moderate Improvement. 5 = Met my Goal - Diagnosis & Disease Process Outcomes/Goals: Pt IDs own risk factors & lifestyle modifications by Session 10, Verbalizes symptoms of angina & response by session 3., Pt independently manages, Other Additional Outcomes/Goals: Plan/Interventions: Assist Pt to ID & engage in lifestyle modification to reduce CVD risk, Instruct on individual risk factors, Review symptoms of angina & emergency actions, Review secondary diagnosis & identify educational needs., Other see comment 30 day Reassessments:: Not Met - Safety Referral to Physical Therapy: No Referral to [facility] Case Management: No Fall Risk Assessed:: Yes Assistive Devices:: None Exercise - Initial Assessment - Visit Date of Eval: 03/13/22 - initial eval Mets: Pre-: >3 METS for 30 minutes by discharge, >5 METS for 30 minutes by discharge, >7 METS for 30 minutes by discharge, Unable to meet goal due to: (see comment below) - Physician Prescribed Exercise Modalities: Treadmill, Airdyne, NuStep, SciFit, Lateral [place] Frequency: 3x/week for 12 weeks [36 sessions] Intensity: 60-80% of age predicted maximum heart rate reserve Current METSs:: 2.0 Target Heart Rate:: 76-100 Resting Blood Pressure: 124/70 - Outcomes & Goals Goals:: Verbalizes understanding of THR, RPE & goal METS by session 6, Documents in home exercise log/reports 30 min aerobic 5 day/wk by DC, Demonstrates accurate pulse taking by DC, Other additional outcome/goals: see below - Intervention & Plan Exercise Program Goals: Instruct on personal THR & RPE, Instruct on MET level & personal MET goal, Show patient to take own pulse /validate performance until accurate, Instruct on home exercise, Other additional plan/int - Physical Activity Home Exercise Physical Activity - Home Exercise: Safe Exercise, Warm-up, Self-monitoring, Cool-Down, Home Exercise > 30 min Daily, Sitting Time <3 hours/daily - Outcomes & Goals Outcomes/Goals: Demonstrates correct Warm-up/exercise Cool-Down (S3) if = 2.5 METs, Verbalizes symptoms of exercise intolerance by Session 3 (S3), Demonstrate safe equipment use (S3) & follows exercise prescrition (6), Other: See below - Intervention & Plan Plan/Intervention: Instruct warm-up & cool-down if exercising at > 2 METs, Instruct on symptoms of exercise intolerance & actions to take, Instruct & monitor on saf, Assess intial functional capacity & safety risk, Other See below Nutrition - Initial Assessment - Program Goals Nutrition Program Goals: LDL <100 optimal. 100 - 129 Near optimal. 130 - 159 Borderline High. 160 - 189 High. Total Cholesterol <200 desirable. 200 - 239 Borderline High. >/= 240 High. HDL < 40 Low >/=60 High. Triglycerides <150 desirable. <199 optimal. VlDL 5 - 40. HgbA1C <7%. BMI <25 Patient has diagnosis of Hyperlipidemia (ICD E78)?: Yes - Visit Date of Assessment:: 03/13/22 - initial eval - Cholesterol/Lipids Determine presence & major risk factors that modify LDL goal: Cigarette smoking, Hypertension or hypertensive medication, Low HDL cholesterol <40 mg/dL*, Family history of premature CHD in Male < 55 years: female <65 yearsFa, Age men > 45 years; women >/= 55 years Outcomes/Goals: Pt IDs own risk factors & lifestyle modifications by Session 10, Verbalizes symptoms of angina & response by session 3., Pt independently manages, Other Additional Outcomes/Goals: Intervention/Plan: Advocate for lipid panel cholesterol medication if applicable, Instruct on personal lipid levels & lipid goals/NCEP guidelines, Instruct on cholesterol, Other additional plan/int Referral to dietitian:: No - Diabetes (Other Core Measures) Diabetes Type: Not Applicable - Weight Mgt (Other Care) Height: 5 ft 4 in Weight:: 72.575 kg BMI: 27.4 Outcomes/Goals: Pt sets, maintains & shows weight loss goal & trend during rehab, Other additional outcomes/goals Intervention/Plan: Instruct on ideal BMI & set weight loss goal w/patient, Assist pt to ID & incorporate diet changes for weight loss by S9, Refer to Structured Weight Loss program as appropriate, Encourage goal of using 250-300dcal per session for weight loss, Other additional plan/interventions - Healthy Eating Habits Will attend diet classes:: Yes Outcomes/Goals:: Consume diet rich in vegs,fruits,whole grain/high fiber,fish,lean meat, Limit sat/trans fats,cholesterol & added salts & sugars, Other additional outcome/goals: Intervention/Plan:: Assess current eating habits, Other Additional plan/interventions - Education Gave educational materials for:: Signs & symptoms of hypoglycemia, Signs & symptoms of hyperglycemia, Relate diabetes to coronary artery disease, Healthy eating Nutrition - 30-Day Assessment Nutrition - 60-Day Assessment Nutrition - 90-Day Assessment Nutrition - Final Assessment Medical - Initial Assessment - Visit Date of Eval: 03/13/22 - initial eval - Medication Compliance Preventative Medication(s):: Aspirin, Clopidogrel/P2Y12 inhibit, Statin/lipid, Beta marquita H/O mental health issues: depression, anxiety, or addiction?: No Doesn?t believe in the benefits of treatment?: No Believes medications are unnecessary or harmful?: No Has a concern about medication side effects?: No Expresses concern over the cost of medications?: No Outcomes/Goals: Verbalizes medications,desired effect & common side effects @ DC, Pt self-reports following medication regimen, Keeps card in wallet w/medications listed by DC, Other additional outcome/goals: Interventions/plans: Instruct on medication effects & side effects, Review medication list w/patient every two weeks, Instruct importance of taking meds as ordered & assist problem solving, Other additional - Tobacco Use Tobacco Use: Cigarettes How long ago did you quit using tobacco products?: Greater than or equal to 6 months ago How many cigarettes do you smoke per day?: 10 Years Smokin Do you use smokeless tobacco?: No Interventions/plan: Instruct on effects of smoking & provide smoking cessation resource, Assist pt to set quit date & provide encouragement, Assist pt to develop strategies to achieve/maintain quit date, Assist pt w/nicotine replacement & medication for cessation success, Other additional plan/interventions - Hypertension Resting Blood Pressure:: 124/70 [place] [employer] Hypertension Guidelines: [place] [employer] Hypertension Guidelines. Normal BP Less than 120/80. Elevated BP 120/80. Hypertension Stage 1: BP 130-139/80-89. Hypertesnion Stage 2: BP 140 or higher/90 or higher. Hypertension Crisis: BP higher than 180/120 Outcomes/Goals: Able to verbalize/achieve optimal blood pressure <130/80, Incorporates diet changes & exercise for blood pressure control by DC, Other additional outcomes/goals Interventions/plan: Instruct on optimal blood pressure, hypertension & medications, Instruct on effects of sodium, alcohol, stress, exercise &hypertension, Other additional plan/interventions - Tobacco Cessation Referral Smoking Cessation Referral:: No Individual Education/Counseling:: No Education Schedule Given:: Yes Medical- 30-Day Assessment Medical- 60-Day Assessment Medical- 90-Day Assessment Medical - Final Assessment Psychosocial - Initial Assess - VIsit Date of Eval: 03/13/22 - initial eval History of previous Mental disease:: No - Outcomes/Goals: See list Psychosocial Outcomes/Goals:: ID's personal stressors & 2 strategies to manage stress by discharge, Other Additional outcome/goals: - Intervention/Plan: See List Interventions/Plan:: Assess stressors,coping strategies & signs of derpression on admission, Instruct/assist pt to develop coping & personal stress Mgt strategies, Refer to Behavioral Health if appropriate, Refer to Physician if appropriate, Instruct patient to recognize signs & symptoms of depression, Instruct patient to recog, Other additional plan/intervention Psychosocial - 30-Day Assess Psychosocial - 60-Day Assess Psychosocial - 90-Day Assess Psychosocial - Final Assessmen Patient Health Questionnaire Initial Assessment 1. Little interest or pleasure in doing things: Not at all 2. Feeling down, depressed, or hopeless: Not at all 3. Trouble falling or staying asleep, or sleeping too much: Several days 4. Feeling tired or having little energy: Not at all 5. Poor appetite or overeating: Not at all 6. Feeling bad about yourself -- or that you are a failure or have let yourself or your family down: Not at all 7. Trouble concentrating on things, such as reading the newspaper or watching television: Not at all 8. Moving or speaking so slowly that other people could have noticed. Or the opposite - being so fidgety or restless that you have been moving around a lot more than usual: Not at all How difficult have these problems made it for you to do your work, take care of things at home, or get along with other people?: Not difficult at all Total Score: 1 LUCIUS-Q SV Test - Statements CAD is a disease of the arteries in the heart: False Examples of risk factors for heart disease: True Angina is chest pain or discomfort: I Don't Know The benefits of resistance training include: True Eating more meat and dairy products: False Anti-platelet medications such as aspirin are important: I Don't Know The only effective way to manage stress: False An exercise warm-up slowly increases heart rate: I Don't Know Prepared, processed foods usually have high sodium: True Depression is common after a heart attack: I Don't Know The statin medications lower cholesterol: I Don't Know To control blood pressure, lower the amount of sodium: True If someone gets chest discomfort during walking: False Transfats are partially hydrogenated vegetable oils: False Sleep apnea that is not treated increases the risk: I Don't Know To control cholesterol, one should become a vegetarian: False Someone knows if he/she is exercising at the right level: I Don't Know Diabetes cannot be prevented with exercise & health eating: False Stress is a large risk for heart attack: True A diet that can help lower blood pressure is rich in: True - Total Score Total Correct Responses: 12 Self-Efficacy Initial Assessment We would like to know how confident you are in doing certain activities. Please select your confidence level for:: Select your confidence level for the following using the scale 1-10 where 1 is not at all confident and 10 is totally confident. Your score is the average of all 6 responses. Fatigue: How confident are you that you can keep the fatigue caused by your disease from interfering with the things you want to do? Select Number: 8 Physical Discomfort or Pain: How confident are you that you can keep the physical discomfort or pain of your disease from interfering with the things you want to do? Select Number: 8 Emotional Distress: How confident are you that you can keep the emotional distress caused by your disease from interfering with the things you want to do? Select Number: 8 Other Symptoms or Health Problems: How confident are you that you can keep other symptoms or health problems from interfering with the things you want to do? Select Number: 5 Different Tasks and Activities: How confident are you that you can do the different tasks and activities needed to manage your health condition so as to reduce your need to see a doctor? Select Number: 8 Medication: How confident are you that you can do things other than just taking medication to reduce how much your illness affects your everyday life? Select Number: 8 Total Score:: 7 Nutrition Survey - Nutrition Survey Initial Have you lost >10 lbs over the past 2 months without trying?: Yes Are you following a special diet at home for diabetes, low fat, or low salt?: No Are you interested in meeting with a dietitian for help understanding your diet?: No Do you eat less than 3 meals a day?: Yes Do you eat fatty meats (allen, sausage, ribs, etc), fried foods, desserts, large amounts of salad dressings, margarine, butter, or cheese most days?: Yes Do you have food allergies? [Enter types in comment field]: Yes Do you eat in restaurants more than 3 times a week?: No Do you season food with salt, seasoning salt, or garlic salt?: Yes Do you used canned, boxed, frozen meals, or soups, seasoning packets?: Yes Total Score:: 6
[2022-03-13 14:28] VITALS: BP 124/70; BMI 27.4
== END | disposition home or self-care (01) ==
PROVIDERS: PCP Nurse Practitioner; Referring Provider Internal Medicine Cardiovascular Disease; Visit Provider Internal Medicine Cardiovascular Disease
DX: I25.10 Atherosclerotic heart disease of native coronary artery without angina pectoris (principal); I48.91 Unspecified atrial fibrillation; I25.2 Old myocardial infarction; E78.5 Hyperlipidemia, unspecified; I35.0 Nonrheumatic aortic (valve) stenosis; Z87.891 Personal history of nicotine dependence; Z79.82 Long term (current) use of aspirin; Z79.899 Other long term (current) drug therapy; Z79.02 Long term (current) use of antithrombotics/antiplatelets

== ENCOUNTER 2022-03-20 13:02 | Outpatient (RCR) | payer MEDICARE, SELFPAY ==
[2022-03-13 14:28] VITALS: BMI 27.4
== END 2022-03-21 23:59 ==
LOC: CR 13:02
PROVIDERS: PCP Nurse Practitioner; Referring Provider Internal Medicine Cardiovascular Disease; Visit Provider Internal Medicine Cardiovascular Disease
DX: I25.10 Atherosclerotic heart disease of native coronary artery without angina pectoris (principal); I25.2 Old myocardial infarction; I35.0 Nonrheumatic aortic (valve) stenosis; I48.91 Unspecified atrial fibrillation; I97.89 Other postprocedural complications and disorders of the circulatory system, not elsewhere classified; N99.0 Postprocedural (acute) (chronic) kidney failure; J90 Pleural effusion, not elsewhere classified; Z95.3 Presence of xenogenic heart valve; E78.5 Hyperlipidemia, unspecified; Z95.1 Presence of aortocoronary bypass graft
CPT/HCPCS: 93798

== ENCOUNTER 2022-04-19 13:00 | Outpatient (RCR) | payer MEDICARE, SELFPAY ==
[2022-03-13 14:28] VITALS: BMI 27.4
--- NOTE | 2022-04-10 08:31 | CR.ITP_ITS ---
Diagnosis Exercise - 30-day Assessment - Visit Date of Eval: 04/10/22 Session #:: 7 - Started on 03/20/2022 - Physician Prescribed Exercise Modalities: Treadmill, Airdyne, NuStep Frequency: 3x/week for 12 weeks [36 sessions] Intensity: 60-80% of age predicted maximum heart rate reserve Current METSs:: 3.0 Target Heart Rate:: 76-100 Current RPE:: 12 Maximum Excercise HR:: 106 Resting Blood Pressure: 92/60 Maximum Exercise Blood Pressure: 122/80 EKG Type: NSR To sinus tach w/rare PAC and PVC noted - Outcomes & Goals Goals:: Verbalizes understanding of THR, RPE & goal METS by session 6, Documents in home exercise log/reports 30 min aerobic 5 day/wk by DC, Demonstrates accurate pulse taking by DC - Intervention & Plan Exercise Program Goals: Instruct on personal THR & RPE, Instruct on MET level & personal MET goal, Show patient to take own pulse /validate performance until accurate, Instruct on home exercise - 30-day Reassessments 30 day Reassessments:: Progressing - Physical Activity Home Exercise Physical Activity - Home Exercise: Safe Exercise, Warm-up, Self-monitoring, Cool-Down, Home Exercise > 30 min Daily, Sitting Time <3 hours/daily - Outcomes & Goals Outcomes/Goals: Demonstrates correct Warm-up/exercise Cool-Down (S3) if = 2.5 METs, Verbalizes symptoms of exercise intolerance by Session 3 (S3), Demonstrate safe equipment use (S3) & follows exercise prescrition (6) - Intervention & Plan Plan/Intervention: Instruct warm-up & cool-down if exercising at > 2 METs, Instruct on symptoms of exercise intolerance & actions to take, Instruct & monitor on saf, Assess intial functional capacity & safety risk - 30-day Reassessments 30 day Reassessments:: Progressing Nutrition - Initial Assessment Nutrition - 30-Day Assessment - Program Goals Nutrition Program Goals: LDL <100 optimal. 100 - 129 Near optimal. 130 - 159 Borderline High. 160 - 189 High. Total Cholesterol <200 desirable. 200 - 239 Borderline High. >/= 240 High. HDL < 40 Low >/=60 High. Triglycerides <150 desirable. <199 optimal. VlDL 5 - 40. HgbA1C <7%. BMI <25 Patient has diagnosis of Hyperlipidemia (ICD E78)?: Yes - Visit Date of Assessment:: 04/10/22 Session #:: 7 - Cholesterol/Lipids Triglycerides (mg/dL): 109 Total Cholesterol (mg/dL): 229 LDL Cholesterol (mg/dL): 154 HDL Cholesterol (mg/dL): 53 Determine presence & major risk factors that modify LDL goal: Hypertension or hypertensive medication, Family history of premature CHD in Male < 55 years: female <65 yearsFa, Age men > 45 years; women >/= 55 years Outcomes/Goals: Pt IDs own risk factors & lifestyle modifications by Session 10, Verbalizes symptoms of angina & response by session 3., Pt independently manages Intervention/Plan: Instruct on personal lipid levels & lipid goals/NCEP sabiha chang, Instruct on cholesterol Referral to dietitian:: Yes - Medical Nutrition Therapy - Diabetes (Other Core Measures) Diabetes Type: Not Applicable Fasting blood glucose:: 107 Hgb A1C (4.2 -6.3): 5.3 - Weight Mgt (Other Care) Height: 5 ft 4 in Weight:: 168 lb 8 oz BMI: 28.9 Diagnosis Overweight/Obesity BMI> 30% ICD-10 E66: No Diagnosis High BMI/Morbid Obesity BMI> 35% ICD-10 Z68: No Outcomes/Goals: Pt sets, maintains & shows weight loss goal & trend during rehab Intervention/Plan: Instruct on ideal BMI & set weight loss goal w/patient, Assist pt to ID & incorporate diet changes for weight loss by S9, Encourage goal of using 250-300dcal per session for weight loss 30 day Reassessments:: Progressing - Healthy Eating Habits Will attend diet classes:: No Outcomes/Goals:: Consume diet rich in vegs,fruits,whole grain/high fiber,fish,lean meat, Limit sat/trans fats,cholesterol & added salts & sugars Intervention/Plan:: Assess current eating habits 30-day Reassessments:: Progressing - Education Gave educational materials for:: Healthy eating Nutrition - 60-Day Assessment Nutrition - 90-Day Assessment Nutrition - Final Assessment Medical - Initial Assessment Medical- 30-Day Assessment - Visit Date of Eval: 04/10/22 Session #:: 22 - Medication Compliance Preventative Medication(s):: Aspirin, Clopidogrel/P2Y12 inhibit, Ticagrelor/P2Y12 inhibitor, Statin/lipid H/O mental health issues: depression, anxiety, or addiction?: No Doesn?t believe in the benefits of treatment?: No Believes medications are unnecessary or harmful?: No Has a concern about medication side effects?: No Expresses concern over the cost of medications?: No Outcomes/Goals: Verbalizes medications,desired effect & common side effects @ DC, Pt self-reports following medication regimen, Keeps card in wallet w/medications listed by DC Interventions/plans: Instruct on medication effects & side effects, Review medication list w/patient every two weeks, Instruct importance of taking meds as ordered & assist problem solving 30-day Reassessments:: Progressing - Tobacco Use Tobacco Use: Non-smoker Outcomes/Goals: Identify aids/strategies for achieving smoking cessation by session 6 Interventions/plan: Instruct on effects of smoking & provide smoking cessation resource, Assist pt to set quit date & provide encouragement, Assist pt to develop strategies to achieve/maintain quit date, Assist pt w/nicotine replacement & medication for cessation success 30-day Reassessments:: Progressing - Hypertension Hypertension Diagnosis:: Hypertension ICD-10 I10 Resting Blood Pressure:: 92/60 [place] [employer] Hypertension Guidelines: [place] [employer] Hypertension Guidelines. Normal BP Less than 120/80. Elevated BP 120/80. Hypertension Stage 1: BP 130-139/80-89. Hypertesnion Stage 2: BP 140 or higher/90 or higher. Hypertension Crisis: BP higher than 180/120 Peak Exercise Blood Pressure:: 122/80 Outcomes/Goals: Able to verbalize/achieve optimal blood pressure <130/80, Incorporates diet changes & exercise for blood pressure control by DC Interventions/plan: Instruct on optimal blood pressure, hypertension & medications, Instruct on effects of sodium, alcohol, stress, exercise &hypertension 30 day Reassessments:: Progressing - Tobacco Cessation Referral Smoking Cessation Referral:: No Individual Education/Counseling:: No Education Schedule Given:: Yes Medical- 60-Day Assessment Medical- 90-Day Assessment Medical - Final Assessment Psychosocial - Initial Assess Psychosocial - 30-Day Assess - VIsit Date of Eval: 04/10/22 Session #:: 7 Not Applicable: Yes History of previous Mental disease:: No - Psychosocial Test Tool Used:: PHQ-9 Questionnaire phq-9 Severity: Severity. 1-4 Minimal Depression. 5-9 Mild Depression. 10-14 Moderate Depression. 15-19 Moderately Sever Depression. 20-27 Severe Depression. Rule: - Referral to Behavioral Health PS - Interventions: Yes Attend Stress Management Classes, No Referral to Behavioral Health if PHQ-9 score >9:, No Referral to [facility], No Referral to Physician if PHQ-9 if score is 5-9: - Outcomes/Goals: See list Psychosocial Outcomes/Goals:: ID's personal stressors & 2 strategies to manage stress by discharge - Intervention/Plan: See List Interventions/Plan:: Assess stressors,coping strategies & signs of derpression on admission, Instruct/assist pt to develop coping & personal stress Mgt strategies, Instruct patient to recognize signs & symptoms of depression, Instruct patient to recog - 30-day Reassessments: 30 day Reassessments:: Progressing Psychosocial - 60-Day Assess Psychosocial - 90-Day Assess Psychosocial - Final Assessmen Patient Health Questionnaire 30-Day Re-eval Assessment 1. Little interest or pleasure in doing things: Not at all 2. Feeling down, depressed, or hopeless: Not at all 3. Trouble falling or staying asleep, or sleeping too much: Several days 4. Feeling tired or having little energy: Not at all 5. Poor appetite or overeating: Not at all 6. Feeling bad about yourself -- or that you are a failure or have let yourself or your family down: Not at all 7. Trouble concentrating on things, such as reading the newspaper or watching television: Not at all 8. Moving or speaking so slowly that other people could have noticed. Or the opposite - being so fidgety or restless that you have been moving around a lot more than usual: Not at all 9. Thoughts that you would be better off , or of hurting yourself in some way: Not at all How difficult have these problems made it for you to do your work, take care of things at home, or get along with other people?: Not difficult at all Total Score: 1 Self-Efficacy 30-Day Re-eval Assessment We would like to know how confident you are in doing certain activities. Please select your confidence level for:: Select your confidence level for the following using the scale 1-10 where 1 is not at all confident and 10 is totally confident. Your score is the average of all 6 responses. Fatigue: How confident are you that you can keep the fatigue caused by your disease from interfering with the things you want to do? Select Number: 8 Physical Discomfort or Pain: How confident are you that you can keep the physical discomfort or pain of your disease from interfering with the things you want to do? Select Number: 8 Emotional Distress: How confident are you that you can keep the emotional distress caused by your disease from interfering with the things you want to do? Select Number: 8 Other Symptoms or Health Problems: How confident are you that you can keep other symptoms or health problems from interfering with the things you want to do? Select Number: 8 Different Tasks and Activities: How confident are you that you can do the different tasks and activities needed to manage your health condition so as to reduce your need to see a doctor? Select Number: 8 Medication: How confident are you that you can do things other than just taking medication to reduce how much your illness affects your everyday life? Select Number: 8 Total Score:: 8 Nutrition Survey
[2022-04-10 08:41] VITALS: BP 122/80; BP 92/60; BMI 28.9
== END 2022-04-21 23:59 ==
LOC: CR 13:00
PROVIDERS: PCP Nurse Practitioner; Referring Provider Internal Medicine Cardiovascular Disease; Visit Provider Internal Medicine Cardiovascular Disease
DX: I25.10 Atherosclerotic heart disease of native coronary artery without angina pectoris (principal); Z49.02 Encounter for fitting and adjustment of peritoneal dialysis catheter; N99.0 Postprocedural (acute) (chronic) kidney failure; Z98.890 Other specified postprocedural states; J90 Pleural effusion, not elsewhere classified; I97.89 Other postprocedural complications and disorders of the circulatory system, not elsewhere classified; I48.91 Unspecified atrial fibrillation; Z95.3 Presence of xenogenic heart valve; Z95.1 Presence of aortocoronary bypass graft; I25.2 Old myocardial infarction; I35.0 Nonrheumatic aortic (valve) stenosis; E78.5 Hyperlipidemia, unspecified
CPT/HCPCS: 93798

== ENCOUNTER → 2022-05-01 | Outpatient (CLI) | payer MEDICARE, SELFPAY ==
[2022-04-10 08:41] VITALS: BMI 28.9
[2022-05-01 14:39] LABS: Hematocrit 40.1 % (37-47); Hemoglobin 13.7 g/dL (12.0-15.0); Mean Corp Hgb Conc 34.2 g/dL (32-36); Mean Corpuscular Hgb 30.6 pg (27.0-32.0); Mean Corpuscular Volume 89.5 fL (81-99); Mean Platelet Vol. 9.6 fl (6.2-12.0); Platelet Count 206 K/mm3 (150-450); RBC Distribution Width CV 13.6 % (11.6-14.6); RBC Distribution Width SD 44.4 fl (35.1-43.9); Red Blood Count 4.48 M/mm3 (4.2-5.4); White Blood Count 6.6 K/mm3 (4.4-11.0)
[2022-05-01 14:57] LABS: Protein, Urine (Random) 14.8 mg/dL (<11.9); Protein:Creat Ratio 94 mg/g CRE (0-200)
[2022-05-01 15:10] LABS: Albumin, Serum 3.6 g/dL (3.2-5.0); BUN 17 mg/dL (7-18); BUN/Creat Ratio 18.6 RATIO (10-20); Chloride 106 mmol/L (98-107); Creatinine, Serum 0.92 mg/dL (0.55-1.02); EST Glomerular Filtration Rate 65 mL/min (>60); Est Glom Filt Rate - Afr Amer 79 mL/min (>60); Glucose 80 mg/dL (74-106); Phosphorus 3.6 mg/dL (2.5-4.9); Potassium 4.3 mmol/L (3.5-5.1); Sodium Level 136 mmol/L (136-145)
[2022-05-01 15:13] LABS: Vitamin D,25 Hydroxy 41.3 ng/mL
[2022-05-01 15:16] LABS: PTHIN 56.9 pg/mL (18.4-80.1)
== END | disposition home or self-care (01) ==
LOC: LAB 14:00
PROVIDERS: PCP Nurse Practitioner; Referring Provider Internal Medicine Nephrology; Visit Provider Internal Medicine Nephrology
DX: N18.31 Chronic kidney disease, stage 3a (principal)
CPT/HCPCS: 36415; 80069; 82306; 82570; 83970; 84156; 85027

== ENCOUNTER 2022-05-22 13:00 | Outpatient (RCR) | payer MEDICARE, SELFPAY ==
[2022-04-10 08:41] VITALS: BMI 28.9
[2022-04-22 00:37] VITALS: BP 122/80; BP 92/60
--- NOTE | 2022-05-10 13:59 | PCM.CR.ITP ---
Diagnosis - General Information Admitting Diagnosis: CABG Personal Learning Style:: Audio/Visual, Demonstration, Group, Individual Preference, Written Gave educational material for:: Treating Heart Disease, Emotions & Heart Disease, Stress Management & Relaxation, Sleep Disorders & Heart Disease, How The Heart Works, What it means to have Heart Disease, How Coronary Artery Disease is Diagnosed, Heart Procedures, What Heart Medications Do, Risk Factors & Modifications, Living an Active Life, Nutrition Exercise - 60-day Assessment - Visit Date of Eval: 05/10/22 Session #:: 22 - Physician Prescribed Exercise Modalities: Treadmill, Rower, Lateral Yarn Bleaching Machine Operator Frequency: 3x/week for 12 weeks [36 sessions] Intensity: 60-80% of age predicted maximum heart rate reserve Duration: 30-45 Current METSs:: 4.5 Target Heart Rate:: 76-100 Current RPE:: 12-13 Maximum Excercise HR:: 104 Resting Blood Pressure: 96/60 Maximum Exercise Blood Pressure: 128/82 EKG Type: NSR to ST rare PVC's - Outcomes & Goals Goals:: Verbalizes understanding of THR, RPE & goal METS by session 6, Documents in home exercise log/reports 30 min aerobic 5 day/wk by DC, Demonstrates accurate pulse taking by DC, Other additional outcome/goals: see below - Intervention & Plan Exercise Program Goals: Instruct on personal THR & RPE, Instruct on MET level & personal MET goal, Show patient to take own pulse /validate performance until accurate, Instruct on home exercise, Other additional plan/int - 30-day Reassessments 30 day Reassessments:: Progressing - increasing METS - Physical Activity Home Exercise Physical Activity - Home Exercise: Safe Exercise, Warm-up, Self-monitoring, Cool-Down, Home Exercise > 30 min Daily, Sitting Time <3 hours/daily - Outcomes & Goals Outcomes/Goals: Demonstrates correct Warm-up/exercise Cool-Down (S3) if = 2.5 METs, Verbalizes symptoms of exercise intolerance by Session 3 (S3), Demonstrate safe equipment use (S3) & follows exercise prescrition (6), Other: See below - Intervention & Plan Plan/Intervention: Instruct warm-up & cool-down if exercising at > 2 METs, Instruct on symptoms of exercise intolerance & actions to take, Instruct & monitor on saf, Assess intial functional capacity & safety risk, Other See below - 30-day Reassessments 30 day Reassessments:: Progressing - increasing METS Nutrition - Initial Assessment Nutrition - 30-Day Assessment Nutrition - 60-Day Assessment - Program Goals Nutrition Program Goals: LDL <100 optimal. 100 - 129 Near optimal. 130 - 159 Borderline High. 160 - 189 High. Total Cholesterol <200 desirable. 200 - 239 Borderline High. >/= 240 High. HDL < 40 Low >/=60 High. Triglycerides <150 desirable. <199 optimal. VlDL 5 - 40. HgbA1C <7%. BMI <25 Patient has diagnosis of Hyperlipidemia (ICD E78)?: Yes - Visit Date of Assessment:: 05/10/22 Session #:: 22 - Cholesterol/Lipids Determine presence & major risk factors that modify LDL goal: Hypertension or hypertensive medication, Low HDL cholesterol <40 mg/dL*, Family history of premature CHD in Male < 55 years: female <65 yearsFa, Age men > 45 years; women >/= 55 years Outcomes/Goals: Pt IDs own risk factors & lifestyle modifications by Session 10, Verbalizes symptoms of angina & response by session 3., Pt independently manages, Other Additional Outcomes/Goals: Intervention/Plan: Advocate for lipid panel cholesterol medication if applicable, Instruct on personal lipid levels & lipid goals/NCEP guidelines, Instruct on cholesterol, Other additional plan/int Referral to dietitian:: Yes - medical nutrition therapy 30-day Reassessments:: Progressing - attending education - Weight Mgt (Other Care) Height: 5 ft 4 in Weight:: 78.018 kg BMI: 29.5 Outcomes/Goals: Pt sets, maintains & shows weight loss goal & trend during rehab, Other additional outcomes/goals Intervention/Plan: Instruct on ideal BMI & set weight loss goal w/patient, Assist pt to ID & incorporate diet changes for weight loss by S9, Refer to Structured Weight Loss program as appropriate, Encourage goal of using 250-300dcal per session for weight loss, Other additional plan/interventions 30 day Reassessments:: Progressing - nutrition referral - Healthy Eating Habits Will attend diet classes:: Yes Intervention/Plan:: Assess current eating habits, Other Additional plan/interventions 30-day Reassessments:: Progressing - nutrition referral - Education Gave educational materials for:: Signs & symptoms of hypoglycemia, Signs & symptoms of hyperglycemia, Relate diabetes to coronary artery disease, Healthy eating Nutrition - 90-Day Assessment Nutrition - Final Assessment Core - Initial Assessment Core - 30-Day Assessment Core - 60-Day Assessment - Visit Date of Eval: 05/10/22 Session #:: 22 - Medication Compliance Preventative Medication(s):: Aspirin, Clopidogrel/P2Y12 inhibit, Ticagrelor/P2Y12 inhibitor, Statin/lipid H/O mental health issues: depression, anxiety, or addiction?: No Doesn?t believe in the benefits of treatment?: No Believes medications are unnecessary or harmful?: No Has a concern about medication side effects?: No Expresses concern over the cost of medications?: No Outcomes/Goals: Verbalizes medications,desired effect & common side effects @ DC, Pt self-reports following medication regimen, Keeps card in wallet w/medications listed by DC, Other additional outcome/goals: Interventions/plans: Instruct on medication effects & side effects, Review medication list w/patient every two weeks, Instruct importance of taking meds as ordered & assist problem solving, Other additional 30-day Reassessments:: Progressing - encourage proper med use - Tobacco Use 30-day Reassessments:: Progressing - encourage proper med use - Hypertension Hypertension Diagnosis:: Hypertension ICD-10 I10 Resting Blood Pressure:: 96/60 [place] [employer] Hypertension Guidelines: [place] [employer] Hypertension Guidelines. Normal BP Less than 120/80. Elevated BP 120/80. Hypertension Stage 1: BP 130-139/80-89. Hypertesnion Stage 2: BP 140 or higher/90 or higher. Hypertension Crisis: BP higher than 180/120 Peak Exercise Blood Pressure:: 128/82 Outcomes/Goals: Able to verbalize/achieve optimal blood pressure <130/80, Incorporates diet changes & exercise for blood pressure control by DC, Other additional outcomes/goals Interventions/plan: Instruct on optimal blood pressure, hypertension & medications, Instruct on effects of sodium, alcohol, stress, exercise &hypertension, Other additional plan/interventions 30 day Reassessments:: Progressing - encourage proper med use - Tobacco Cessation Referral Smoking Cessation Referral:: No Individual Education/Counseling:: No Education Schedule Given:: Yes Core - 90 Day Assessment Core - Final Assessment Psychosocial - Initial Assess Psychosocial - 30-Day Assess Psychosocial - 60-Day Assess - VIsit Date of Eval: 05/10/22 Session #:: 22 History of previous Mental disease:: No - Outcomes/Goals: See list Psychosocial Outcomes/Goals:: ID's personal stressors & 2 strategies to manage stress by discharge, Other Additional outcome/goals: - Intervention/Plan: See List Interventions/Plan:: Assess stressors,coping strategies & signs of derpression on admission, Instruct/assist pt to develop coping & personal stress Mgt strategies, Refer to Behavioral Health if appropriate, Refer to Physician if appropriate, Instruct patient to recognize signs & symptoms of depression, Instruct patient to recog, Other additional plan/intervention Psychosocial - 90-Day Assess Psychosocial - Final Assessmen Patient Health Questionnaire 60-Day Re-eval Assessment 1. Little interest or pleasure in doing things: Not at all 2. Feeling down, depressed, or hopeless: Not at all 3. Trouble falling or staying asleep, or sleeping too much: Several days 4. Feeling tired or having little energy: Not at all 5. Poor appetite or overeating: Not at all 6. Feeling bad about yourself -- or that you are a failure or have let yourself or your family down: Not at all 7. Trouble concentrating on things, such as reading the newspaper or watching television: Not at all 8. Moving or speaking so slowly that other people could have noticed. Or the opposite - being so fidgety or restless that you have been moving around a lot more than usual: Not at all 9. Thoughts that you would be better off , or of hurting yourself in some way: Not at all How difficult have these problems made it for you to do your work, take care of things at home, or get along with other people?: Not difficult at all Total Score: 1 Self-Efficacy 60-Day Re-eval Assessment We would like to know how confident you are in doing certain activities. Please select your confidence level for:: Select your confidence level for the following using the scale 1-10 where 1 is not at all confident and 10 is totally confident. Your score is the average of all 6 responses. Fatigue: How confident are you that you can keep the fatigue caused by your disease from interfering with the things you want to do? Select Number: 8 Physical Discomfort or Pain: How confident are you that you can keep the physical discomfort or pain of your disease from interfering with the things you want to do? Select Number: 8 Emotional Distress: How confident are you that you can keep the emotional distress caused by your disease from interfering with the things you want to do? Select Number: 8 Other Symptoms or Health Problems: How confident are you that you can keep other symptoms or health problems from interfering with the things you want to do? Select Number: 8 Different Tasks and Activities: How confident are you that you can do the different tasks and activities needed to manage your health condition so as to reduce your need to see a doctor? Select Number: 8 Medication: How confident are you that you can do things other than just taking medication to reduce how much your illness affects your everyday life? Select Number: 8 Total Score:: 8 Nutrition Survey
[2022-05-10 14:27] VITALS: BP 128/82; BP 96/60; BMI 29.5
== END 2022-05-22 23:59 ==
LOC: CR 13:00
PROVIDERS: PCP Nurse Practitioner; Referring Provider Internal Medicine Cardiovascular Disease; Visit Provider Internal Medicine Cardiovascular Disease
DX: E78.5 Hyperlipidemia, unspecified (principal); I35.0 Nonrheumatic aortic (valve) stenosis; I25.2 Old myocardial infarction; I25.10 Atherosclerotic heart disease of native coronary artery without angina pectoris; I97.89 Other postprocedural complications and disorders of the circulatory system, not elsewhere classified; J90 Pleural effusion, not elsewhere classified; N99.0 Postprocedural (acute) (chronic) kidney failure; I48.91 Unspecified atrial fibrillation; Z79.02 Long term (current) use of antithrombotics/antiplatelets; Z98.890 Other specified postprocedural states; Z95.3 Presence of xenogenic heart valve; Z95.1 Presence of aortocoronary bypass graft
CPT/HCPCS: 93798

== ENCOUNTER 2022-06-21 13:00 | Outpatient (RCR) | payer MEDICARE, SELFPAY ==
[2022-05-10 14:27] VITALS: BMI 29.5
[2022-05-23 00:36] VITALS: BP 128/82; BP 96/60
--- NOTE | 2022-06-12 09:27 | CR.ITP_ITS ---
Diagnosis Exercise - 90-day Assessment - Visit Date of Eval: 06/12/22 Session #:: 31 - Physician Prescribed Exercise Modalities: Treadmill, Rower, NuStep, Lateral Program Facilitator Frequency: 3x/week for 12 weeks [36 sessions] Intensity: 60-80% of age predicted maximum heart rate reserve Current METSs:: 4.5 Target Heart Rate:: 76-100 Current RPE:: 12 Maximum Excercise HR:: 116 Resting Blood Pressure: 128/76 Maximum Exercise Blood Pressure: 144/80 EKG Type: NSR to ST with pvc's - Outcomes & Goals Goals:: Verbalizes understanding of THR, RPE & goal METS by session 6, Documents in home exercise log/reports 30 min aerobic 5 day/wk by DC, Demonstrates accurate pulse taking by DC, Other additional outcome/goals: see below - Intervention & Plan Exercise Program Goals: Instruct on personal THR & RPE, Instruct on MET level & personal MET goal, Show patient to take own pulse /validate performance until accurate, Instruct on home exercise, Other additional plan/int - 30-day Reassessments 30 day Reassessments:: Progressing - target HR explained - Physical Activity Home Exercise Physical Activity - Home Exercise: Safe Exercise, Warm-up, Self-monitoring, Cool-Down, Home Exercise > 30 min Daily, Sitting Time <3 hours/daily - Outcomes & Goals Outcomes/Goals: Demonstrates correct Warm-up/exercise Cool-Down (S3) if = 2.5 METs, Verbalizes symptoms of exercise intolerance by Session 3 (S3), Demonstrate safe equipment use (S3) & follows exercise prescrition (6), Other: See below - Intervention & Plan Plan/Intervention: Instruct warm-up & cool-down if exercising at > 2 METs, Instruct on symptoms of exercise intolerance & actions to take, Instruct & monitor on saf, Assess intial functional capacity & safety risk, Other See below - 30-day Reassessments 30 day Reassessments:: Progressing - warm up explained Nutrition - Initial Assessment Nutrition - 30-Day Assessment Nutrition - 60-Day Assessment Nutrition - 90-Day Assessment - Program Goals Nutrition Program Goals: LDL <100 optimal. 100 - 129 Near optimal. 130 - 159 Borderline High. 160 - 189 High. Total Cholesterol <200 desirable. 200 - 239 Borderline High. >/= 240 High. HDL < 40 Low >/=60 High. Triglycerides <150 desirable. <199 optimal. VlDL 5 - 40. HgbA1C <7%. BMI <25 Patient has diagnosis of Hyperlipidemia (ICD E78)?: Yes - Visit Date of Assessment:: 06/12/22 Session #:: 31 - Cholesterol/Lipids (Other Core Measures) Determine presence & major risk factors that modify LDL goal: Hypertension or hypertensive medication, Low HDL cholesterol <40 mg/dL*, Family history of premature CHD in Male < 55 years: female <65 yearsFa, Age men > 45 years; women >/= 55 years Outcomes/Goals: Pt IDs own risk factors & lifestyle modifications by Session 10, Verbalizes symptoms of angina & response by session 3., Pt independently manages, Other Additional Outcomes/Goals: Intervention/Plan: Advocate for lipid panel cholesterol medication if applicable, Instruct on personal lipid levels & lipid goals/NCEP guidelines, Instruct on cholesterol, Other additional plan/int - Diabetes (Other Core Measures) Diabetes Type: Not Applicable - Weight Mgt (Other Care) Height: 5 ft 4 in Weight:: 80.286 kg BMI: 30.4 Outcomes/Goals: Pt sets, maintains & shows weight loss goal & trend during rehab, Other additional outcomes/goals Intervention/Plan: Instruct on ideal BMI & set weight loss goal w/patient, Assist pt to ID & incorporate diet changes for weight loss by S9, Refer to Structured Weight Loss program as appropriate, Encourage goal of using 250- 300dcal per session for weight loss, Other additional plan/interventions 30 day Reassessments:: Progressing - pt to attend nutrition class - Healthy Eating Habits Will attend diet classes:: Yes Outcomes/Goals:: Consume diet rich in vegs,fruits,whole grain/high fiber,fish,lean meat, Limit sat/trans fats,cholesterol & added salts & sugars, Other additional outcome/goals: Intervention/Plan:: Assess current eating habits, Other Additional plan/interventions 30-day Reassessments:: Progressing - attending nutritin class - Education Gave educational materials for:: Signs & symptoms of hypoglycemia, Signs & symptoms of hyperglycemia, Relate diabetes to coronary artery disease, Healthy eating Nutrition - Final Assessment Core - Initial Assessment Core - 30-Day Assessment Core - 60-Day Assessment Core - 90 Day Assessment - Visit Date of Eval: 06/12/22 Session #:: 31 - Medication Compliance Preventative Medication(s):: Aspirin, Clopidogrel/P2Y12 inhibit, Ticagrelor/P2Y12 inhibitor, Statin/lipid H/O mental health issues: depression, anxiety, or addiction?: No Doesn?t believe in the benefits of treatment?: No Believes medications are unnecessary or harmful?: No Has a concern about medication side effects?: No Expresses concern over the cost of medications?: No Outcomes/Goals: Verbalizes medications,desired effect & common side effects @ DC, Pt self-reports following medication regimen, Keeps card in wallet w/medications listed by DC, Other additional outcome/goals: Interventions/plans: Instruct on medication effects & side effects, Review medication list w/patient every two weeks, Instruct importance of taking meds as ordered & assist problem solving, Other additional 30-day Reassessments:: Progressing - encourage taking meds - Tobacco Use Tobacco Use: Non-smoker - Hypertension Hypertension Diagnosis:: Hypertension ICD-10 I10 Resting Blood Pressure:: 128/76 [place] [employer] Hypertension Guidelines: [place] [employer] Hypertension Guidelines. Normal BP Less than 120/80. Elevated BP 120/80. Hypertension Stage 1: BP 130-139/80-89. Hypertesnion Stage 2: BP 140 or higher/90 or higher. Hypertension Crisis: BP higher than 180/120 Peak Exercise Blood Pressure:: 144/80 Outcomes/Goals: Able to verbalize/achieve optimal blood pressure <130/80, Incorporates diet changes & exercise for blood pressure control by DC, Other additional outcomes/goals Interventions/plan: Instruct on optimal blood pressure, hypertension & medications, Instruct on effects of sodium, alcohol, stress, exercise &hypertension, Other additional plan/interventions 30 day Reassessments:: Progressing - hypertensin guidelines explained - Tobacco Cessation Referral Smoking Cessation Referral:: No Individual Education/Counseling:: No Education Schedule Given:: Yes Core - Final Assessment Psychosocial - Initial Assess Psychosocial - 30-Day Assess Psychosocial - 60-Day Assess Psychosocial - 90-Day Assess - VIsit Date of Eval: 06/12/22 Session #:: 31 History of previous Mental disease:: No Psychosocial - Final Assessmen Patient Health Questionnaire 90-Day Re-eval Assessment 1. Little interest or pleasure in doing things: Not at all 2. Feeling down, depressed, or hopeless: Not at all 3. Trouble falling or staying asleep, or sleeping too much: Several days 4. Feeling tired or having little energy: Not at all 5. Poor appetite or overeating: Not at all 6. Feeling bad about yourself -- or that you are a failure or have let yourself or your family down: Not at all 7. Trouble concentrating on things, such as reading the newspaper or watching television: Not at all 8. Moving or speaking so slowly that other people could have noticed. Or the opposite - being so fidgety or restless that you have been moving around a lot more than usual: Not at all 9. Thoughts that you would be better off , or of hurting yourself in some way: Not at all How difficult have these problems made it for you to do your work, take care of things at home, or get along with other people?: Not difficult at all Total Score: 1 Self-Efficacy 90-Day Re-eval Assessment We would like to know how confident you are in doing certain activities. Please select your confidence level for:: Select your confidence level for the following using the scale 1-10 where 1 is not at all confident and 10 is totally confident. Your score is the average of all 6 responses. Fatigue: How confident are you that you can keep the fatigue caused by your disease from interfering with the things you want to do? Select Number: 8 Physical Discomfort or Pain: How confident are you that you can keep the physical discomfort or pain of your disease from interfering with the things you want to do? Select Number: 8 Emotional Distress: How confident are you that you can keep the emotional distress caused by your disease from interfering with the things you want to do? Select Number: 8 Other Symptoms or Health Problems: How confident are you that you can keep other symptoms or health problems from interfering with the things you want to do? Select Number: 8 Different Tasks and Activities: How confident are you that you can do the different tasks and activities needed to manage your health condition so as to reduce your need to see a doctor? Select Number: 8 Medication: How confident are you that you can do things other than just taking medication to reduce how much your illness affects your everyday life? Select Number: 8 Total Score:: 8 Nutrition Survey
[2022-06-12 09:37] VITALS: BP 128/76; BP 144/80; BMI 30.4
== END 2022-06-21 23:59 ==
LOC: CR 13:00
PROVIDERS: PCP Nurse Practitioner; Referring Provider Internal Medicine Cardiovascular Disease; Visit Provider Internal Medicine Cardiovascular Disease
DX: E78.5 Hyperlipidemia, unspecified (principal); I35.0 Nonrheumatic aortic (valve) stenosis; I25.2 Old myocardial infarction; I25.10 Atherosclerotic heart disease of native coronary artery without angina pectoris; I97.89 Other postprocedural complications and disorders of the circulatory system, not elsewhere classified; J90 Pleural effusion, not elsewhere classified; N99.0 Postprocedural (acute) (chronic) kidney failure; I48.91 Unspecified atrial fibrillation; Z79.02 Long term (current) use of antithrombotics/antiplatelets; Z98.890 Other specified postprocedural states; Z95.3 Presence of xenogenic heart valve; Z95.1 Presence of aortocoronary bypass graft
CPT/HCPCS: 93798

== ENCOUNTER 2022-06-24 15:03 | Outpatient (RCR) | payer MEDICARE, SELFPAY ==
[2022-06-12 09:37] VITALS: BMI 30.4
== END 2022-07-22 23:59 ==
LOC: CR 15:03
PROVIDERS: PCP Nurse Practitioner; Referring Provider Internal Medicine Cardiovascular Disease; Visit Provider Internal Medicine Cardiovascular Disease
DX: I25.10 Atherosclerotic heart disease of native coronary artery without angina pectoris (principal); Z95.5 Presence of coronary angioplasty implant and graft
CPT/HCPCS: 93798

== ENCOUNTER 2022-07-16 08:51 | Day surgery (SDC) | payer MEDICARE, SELFPAY ==
[2022-04-10 08:41] VITALS: BMI 28.9
[2022-06-12 09:37] VITALS: BMI 30.4
--- NOTE | 2022-07-12 13:48 | EKG12_ITS ---
Test Reason : PRE-OP Blood Pressure : / mmHG Vent. Rate : 083 BPM Atrial Rate : 083 BPM P-R Int : 146 ms QRS Dur : 090 ms QT Int : 396 ms P-R-T Axes : 066 -27 062 degrees QTc Int : 465 ms Sinus rhythm with occasional Premature ventricular complexes Inferior infarct , age undetermined Abnormal ECG Confirmed by KATIA BELTRÁN, ANIKA ([id number]), development editor CHAYO MG ([id number]) on 07/15/2022 9:29:29 AM Referred By: Susan Morocho Confirmed By:ANIKA MONTALVO MD
[2022-07-12 15:37] LABS: Hematocrit 40.4 % (37-47); Hemoglobin 13.7 g/dL (12.0-15.0); Mean Corp Hgb Conc 33.9 g/dL (32-36); Mean Corpuscular Hgb 31.1 pg (27.0-32.0); Mean Corpuscular Volume 91.6 fL (81-99); Platelet Count 203 K/mm3 (150-450); RBC Distribution Width CV 12.9 % (11.6-14.6); RBC Distribution Width SD 43.1 fl (35.1-43.9); Red Blood Count 4.41 M/mm3 (4.2-5.4); White Blood Count 6.3 K/mm3 (4.4-11.0)
[2022-07-12 15:57] LABS: Anion Gap 6 (5-15); BUN 15 mg/dL (7-18); BUN/Creat Ratio 17.2 RATIO (10-20); Chloride 104 mmol/L (98-107); Creatinine, Serum 0.87 mg/dL (0.55-1.02); EST Glomerular Filtration Rate 69 mL/min (>60); Est Glom Filt Rate - Afr Amer 83 mL/min (>60); Glucose 104 mg/dL (74-106); Potassium 3.8 mmol/L (3.5-5.1); Sodium Level 139 mmol/L (136-145)
--- NOTE | 2022-07-15 18:41 | HP.PCM_ITS ---
History and Physical Date of Admission: 07/16/22 Luanne Rivers 1955 ? ? REFERRING PHYSICIAN:? ?Self, MD ? CHIEF COMPLAINT:? ?(Left breast mass)? ? HPI: The patient is a 66 year old female with left breast mass for which biopsy revealed DCIS.? She underwent evaluation at [facility] and was not deemed a candidate for immediate reconstruction, therefore she decided to have surgery closer to home. ? She underwent additional needle core biopsy for which no invasive cancer was noted. ? She is s/p CABG, with a difficult postoperative course, requiring prolonged ICU care and temporary dialysis.? She has recently been discontinued of her plavix She also states that she has quit smoking cigarettes in the past several months ? Her sister and grandmother had breast cancer, no ovarian cancer known ? PAST MEDICAL HISTORY DiagnosisDate ?Acute renal failure (ARF) (HCC)11/2021 ?post surgical complication- was on dialysis. 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 ?Gout of foot? 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 ? PAST SURGICAL HISTORY ProcedureLateralityDate ?BX OF BREAST; RNQSYIOVKWSgugs31/20/2022 ?CORONARY ARTERY BYPASS GRAFT ? ?LIGATE FALLOPIAN TUBE ? ?PAST SURGICAL HISTORY OF 11/26/2021 ?open heart-triple bypass ? ? Current Outpatient Medications MedicationSig ?atorvastatin (LIPITOR) 20 mg tabletTake 1 tablet by mouth once daily. ?allopurinol (ZYLOPRIM) 100 mg tabletTake 1 tablet by mouth once daily. ?ferrous sulfate (IRON ORAL)Take by mouth once daily. ?aspirin 81 mg capTake 81 mg by mouth once daily. ? ? ALLERGIES: Shellfish Derived ? PERSONAL HISTORY:? Social History ? Tobacco Use ?Smoking status:Former ? Packs/day:1.00 ? Years:40.00 ? Pack years:40.00 ? Types:Cigarettes ? Quit date:11/11/2021 ? Years since quittin.4 ?Smokeless tobacco:Never Vaping Use ?Vaping Use:Never used Substance Use Topics ?Alcohol use:Yes ? Comment: rarely? ?Drug use:Never ?? ? FAMILY HISTORY? ProblemRelationAge of Onset ?Brain CancerFather? ?Breast CancerSister? ?Breast CancerMaternal Grandmother? ?DiabetesMaternal Grandfather? ?No Known ProblemsPaternal Grandmother? ?No Known ProblemsPaternal Grandfather? ?No Known ProblemsDaughter? ?GoutSon? ?Kidney stonesSon? ? REVIEW OF SYSTEMS: ? ? ?General:? ?The patient denies fatigue, denies weight loss, denies weight gain, denies feeling hot, and denies feelings of cold. ? ? ?Eyes:? The patient denies glaucoma, denies eye injury/surgery, wears glasses or contacts. ? ? ?Ear/Nose/Throat:? The patient denies allergies, denies hayfever, denies ear infections, and denies bloody noses. ? ? ?Cardiovascular:? The patient denies chest pain, NOTES heart disease, denies high blood pressure,denies cardiac stent, NOTES prior heart attack, denies irregular heart beat, NOTES high cholesterol,? denies poor circulation, denies heart failure, other cardiac issues, denies claudication, denies cold feet, denies peripheral arterial stent. ? ? ?Respiratory:? The patient denies tuberculosis, denies pneumonia, denies frequent cough, denies pulmonary embolism, denies shortness of breath, and denies coughing up blood. ? ? ?Gastrointestinal:? The patient denies difficulty swallowing, denies acid reflux, denies ulcers, denies vomiting, denies jaundice/hepatitis, denies gallbladder problems, denies black or tarry stools, denies hemorrhoids, denies bleeding from rectum, denies diverticulitis, denies constipation, denies diarrhea, denies loss of stool control, and denies hernias. ? ? ?Kidney/Bladder:? The patient denies kidney stones,NOTES Kidney Failure. denies urine infections, and denies bloody urine. ? ? ?Skin:? The patient denies a history of skin cancer, denies bleeding/changing moles, and denies a history of skin rash. ? ? ?Neurologic:? The patient denies a history of epilepsy/convulsions, denies headaches, denies head/spinal injuries, and denies stroke/TIA. ? ? ?Psychiatric:? The patient denies psychiatric medications, denies depression, and denies voices, denies substance abuse. ? ? ?Endocrine:? The patient denies thyroid disorders, denies diabetes, and denies hormonal problems. ? ? ?Hematologic:? The patient NOTES a history of bruising, denies bleeding, and denies anemia, denies blood clots. ? ? ?Infections:? The patient NOTES a history of measles and mumps, denies rheumatic fever, and denies sexually transmitted diseases. ? ? ?Musculoskeletal:? The patient NOTES back pain/injury, NOTES back problems, denies sciatica, denies knee/foot trouble, denies arthritis, or NOTES gout. ? ? ?Gynecological: menarche age 12, , first at age 18, breast feeding -none, BCP use initially at age 19 for 3 y, menopause around age 54 ? ? ? PHYSICAL EXAMINATION: ? General:? The patient is 66 year old female, well nourished, well hydrated in no acute distress.? The patient is oriented to time, place, and person. ? VITALS: Blood pressure 124/78, pulse 89, temperature 36.7 ?C (98 ?F), height 162.6 cm (5' 4), weight 77.6 kg (171 lb), SpO2 100 %. Body mass index is 29.35 kg/m?.? ? Head ? Normocephalic. EOM intact with sclera clear and no icterus noted.? Neck - supple with no jugular venous distention noted. Trachea is midline.. No thyroid enlargement or thyroid nodules detected. No masses noted. Chest/breast ? left breast slightly less ptotic than right, no nipple discharge and both nipples everted, 5 cm left upper outer quadrant breast mass - there is overlying brawny discoloration of the skin Lungs ? clear to auscultation. Normal breath sounds. No rales/rhonchi/wheezing noted. No labored breathing noted, such as retractions. No cough heard. Heart ? normal S1 and S2 auscultated. No rubs/clicks/murmurs noted. Regular rate. Abdomen ? soft and benign. . Extremities ? no calf tenderness noted. No pitting edema noted.? Skin ? normal skin integrity. Lymph ? no cervical adenopathy detected, no supraclavicular adenopathy detected, no axillary adenopathy detected Neurological ? gait normal, no focal deficits noted Psych ? calm and appropriate ? ? ? IMPRESSION: left breast DCIS/mass ? PLAN:? ?I have discussed the above with the patient and her who is present with her. I have recommended mastectomy to the patient and she agrees with this. I have discussed with them, the need for sentinel lymph node biopsy . I have explained the risks of surgery, including but not limited to: infection, bleeding, injury to any blood vessels/nerves, scar tissue, seroma, need for further surgery, wound infections, complications of anesthesia, I have answered all their questions to their satisfaction and this point and they have no further questions. ? ? I have confirmed and edited as necessary, the PFSH and ROS obtained by others. . Diagnoses: (D05.12) Ductal carcinoma in situ (DCIS) of left breast? (primary encounter diagnosis)
[2022-07-16] VITALS (10 sets, daily range): BP systolic 99–135; BP diastolic 57–108; PULSE 64–89; RESP 16–20; TEMP 36.4–36.9; O2SAT 94–100; BMI 30.6
--- NOTE | 2022-07-16 | IMM_PTH ---
PATIENT: SHIRA VALENZUELA LOC: [facility] [place] U#:[id number] AGE/SX: 66/F ROOM: RE07/16/[address]: Dr. Susan Morocho MD : 1955 BED: DIS: 07/16/2022 SPEC #: [id number] RECD: 07/19/22 13:42 STATUS: MATTY REQ #: [id number] DAVID: 07/16/22 00:[address]: Susan Morocho DEPT: IMMUNOHISTOCHEMISTRY RECD BY: Carmenza Juan ENTERED: 07/19/22 13:44 SP TYPE: IMMUNO OTHR DR: MD Astrid Monteshberger, SUPERVISOR SA[employer]ING AND ASSEMBLY-C Tissues: A - Axillary lymph node, NOS B - Left breast, NOS Procedures: SMA (add) Calponin-1(initial) CALPONIN-1 (add) CK5-6 (add) CK7 (add) CK8 (add) E-CAD (add) ER (add) HER2 IRIS (add) KI-67 (add) P53 (add) WY (add) Pankeratin (initial) Pankeratin (add) P40 (add) PHYSICIAN & [place] [id number] SPECIMEN INFORMATION: Tissue Source: A ? Left axillary sentinel lymph nodes, B ? Left breast Clinical Info: Left breast DCIS/mass Specimen Number: [id number] A1-A3, B4 CPT code: 02889 x2, 69840 x14, 53332 x3 METHODOLOGY: Deparaffinized sections of prefer/formalin-fixed tissue or PAP/DQ stained slides are incubated with monoclonal/polyclonal antibodies/oligonucleotide probes. Localization is made via biotin free immunoperoxidase method. Appropriate controls are performed and reacted as expected. Results on target cell population are indicated in the following table: RESULTS: ANTIBODY / CLONE RESULT Block A1 CK7 (OV-TL12/30) negative AE1-3 (AE1/AE3/PCK26) negative Block A2 CK7 (OV-TL12/30) negative AE1-3 (AE1/AE3/PCK26) negative Block A3 CK7 (OV-TL12/30) negative AE1-3 (AE1/AE3/PCK26) negative Block B4 Calponin-1 (SD382L) positive CK5-6 (D5 & 1684) negative Actin (1A4) positive P53 (DO-7) negative Ki-67 (30-9) positive, 10% CK8 (16uwxiX02) positive CK5-6 (D5 & 1684) negative Calponin-1 (RH981U) negative P40 (BC28) negative E-Cad (ECH-6) positive MORPHOMETRIC ANALYSIS ER (clone 6F11) >95%, strong intensity WY (clone 16/1E2) >95%, strong intensity Her-2Neu (clone CB11) 0 The prognostic test for HER2 is performed on formalin-fixed paraffin embedded tissue. A 3+ (positive) staining pattern is defined as intense, homogeneous, complete, circumferential membranous staining in >10% of contiguous tumor cells. A similar weak (2+) staining pattern is interpreted as equivocal. HERMAN follow-up testing is recommended for all equivocal cases. Positivity/negativity for ER/WY is reported if > or < 1% of the tumor cells are immuno- reactive, respectively. The ASCO/CAP criteria is used for scoring. Reference: Journal of Clinical Oncology, 2013; 31:6603-7958 & 2010; 16:7897-0693. Duration of fixation: 29.5 Hrs; Sample Adequate: Yes. These assays have not been validated on decalcified tissues. Results should be interpreted with caution given the likelihood of false negativity on decalcified specimens. These tests were developed and their performance characteristics determined by [facility]. They may not have been cleared or approved by the U.S. Food and Drug Administration. The FDA has determined that such clearance or approval is not necessary. The above immunohistochemical/dualISH markers are ordered and reviewed by the Pathologist. INTERPRETATION: A. Left axillary sentinel lymph nodes, biopsy: Two out of two lymph nodes negative for carcinoma. B. Left breast, mastectomy: Consistent with encapsulated papillary carcinoma. Minute focus (0.9 mm) suspicious for invasive carcinoma. Positive for estrogen receptors (favorable prognostic indicator). Positive for progesterone receptors (favorable prognostic indicator). Negative for overexpression of NSJ1kah. AM:odalys 07/25/2022
--- NOTE | 2022-07-16 | AXNB_PTH ---
PATIENT: SHIRA VALENZUELA LOC: [facility] [place] U#:[id number] AGE/SX: 66/F ROOM: RE07/16/[address]: Dr. Susan Morocho MD : 1955 BED: DIS: 07/16/2022 SPEC #: [id number] RECD: 07/16/22 12:48 STATUS: MATTY REQ #: [id number] DAVID: 07/16/22 00:[address]: Susan Morocho DEPT: SURGICAL PATHOLOGY RECD BY: Carmenza Juan ENTERED: 07/16/22 13:51 SP TYPE: AX NODE BX OTHR DR: MD Astrid Montes, CUSTODIAL SUPERVISOR-C Tissues: A - Axillary lymph node, NOS B - Left breast, NOS Procedures: Gen Path Consultation (on slides) Frozen Section (charge) Frozen Section Add'l ([facility]) Surgery Specimen Level V Surgery Specimen Level HEADER OPERATION: Breast mastectomy with sentinel lymph node biopsy, Neoprobe PRE-OP DIAGNOSIS: Left breast DCIS/mass TISSUE SUBMITTED: A - Left axillary sentinel lymph nodes, FS, B ? Left breast FROZEN SECTION DIAGNOSIS A. Left axillary sentinel lymph nodes, biopsy: Two of two lymph nodes, negative for carcinoma. AM:odalys 07/16/2022 MICROSCOPIC DIAGNOSIS A. Left axillary sentinel lymph nodes, biopsy: Two out of two lymph nodes, negative for carcinoma. B. Left breast, mastectomy: Encapsulated papillary carcinoma with a 0.9mm focus suspicious for microinvasion. See complete cancer synoptic report below. AM:odalys 07/24/2022 COMMENT A & B. Immunohistochemistry ([id number]) supports the above diagnosis. BREAST CANCER SUMMARY Procedure: Mastectomy Specimen: Type: Total breast Size: 20 x 17 x 4.5 cm Laterality: Left breast Invasive Tumor: Site: Left breast Size: 5 x 4.5 x 4 cm Focality: Single focus of tumor Histologic type: Encapsulated papillary carcinoma with suspicion of minute (0.9mm) focus of microinvasion. Histologic grade (Jax grade): Glandular/tubular differentiation score: 3 Nuclear pleomorphism score: 2 Mitotic count score: 1 Overall grade: 2 (score of 6) Ductal Carcinoma In Situ: Not present Lobular Carcinoma In Situ: Not present Tumor extension: Skin: Free of carcinoma Nipple: Free of carcinoma Skeletal muscle: Not applicable Margins: Distance from closest margin: 2 cm from superior margin Lymph Nodes: Number of sentinel lymph nodes examined: 2 Total number of lymph nodes examined: 2 No evidence of macrometastases, micrometastases or isolated tumor cells Treatment Effect: Unknown Lymphvascular invasion: Not identified Additional Pathologic Findings: Fibrocystic change, focal intraductal hyperplasia without atypia, microscopic intraductal papilloma and Banal microcalcifications. Demodex folliculorum of skin. Ancillary Studies: ([id number]) ER: >95% Strong intensity MS: >95% Strong intensity [id number]: negative Ki67: 10% Microcalcifications: Present and associated with non-neoplastic tissue. Clinical History: Mass of breast. PATHOLOGIC STAGE: T2 N0 Mx The above summary is in compliance with College of [place] Path[employer] (CAP) Cancer Protocol Checklist and [place] Joint Committee on Cancer (AJCC) Staging Manual, 8th Ed. This case has been reviewed in consultation with Dr. Bhat of [employer]. The complete report is viewable in EMR. MICROSCOPIC DESCRIPTION Slides are reviewed. GROSS DESCRIPTION A - Received fresh for frozen section consultation labeled with the patient's name is a specimen designated left axillary sentinel lymph nodes. The specimen consists of four irregular fragments of almonte-yellow fibrofatty tissue measuring 8 x 5 x 1.5 cm. Dissection reveals two nodules ranging in size from 1.5 to 2.5 cm in greatest dimension. The nodules are submitted for frozen section consultation in four cassettes as follows: 1 & 2 - one nodule bisected, 3 & 4 - second nodule, bisected. / AM:odalys 07/16/2022 B - Received in fixative is one container labeled with the patient's name and designated left breast. The specimen consists of a mastectomy measuring 20 x 17 x 4.5 cm and weighing 658 gm. Two ellipses of skin are present on the anterior surface. The larger ellipse measures 18 x 7 cm and contains a centrally located nipple and areola. At a distance of 1.5 cm to this is a second ellipse of skin measuring 6 x 1.5 cm. No cutaneous lesions are identified. The specimen is differentially inked as follows: superior - blue, inferior - green and posterior - black. Also present free in the container is an irregular fragment of yellow fatty tissue measuring 7 x 3.5 x 1 cm. Serial sections of this fragment of tissue does not reveal nodules resembling lymph nodes. Serial sections reveal a firm, almonte-white, sharply demarcated mass in the superior aspect measuring 5 x 4.5 x 4 cm. This mass closely abuts the overlying smaller fragment of skin and is located 2 cm from the closest superior margin. The remainder of the breast parenchyma is yellow and focally interrupted by white fibrous streaks. No additional masses are identified. Careful dissection of the lateral aspect of the breast does not reveal nodules or structures resembling lymph nodes. Mining Captain sections are submitted as follows: 1 - nipple and areola, 2 & 3 - perpendicular inked margins, 4 - tumor with adjacent skin and perpendicular superior margin, 5 & 6 - tumor with adjacent superior margin, 7 - additional section of tumor, 8-11 - field sales representative sections of uninvolved breast parenchyma adjacent to and away from tumor. Note, sections are submitted after additional fixation. / AM:odalys 07/17/2022 TC:0 CPT: 57277, 50952, 18209, 99970 x2
[2022-07-16] MEDS: Lactated Ringers 1,000 ML 75 ML IV ×2 (08:45→11:30)
--- NOTE | 2022-07-16 09:57 | NM_ITS ---
PROCEDURE: NUCLEAR MEDICINE Injection Vancleave Node - LEFT breast(s). REASON FOR EXAM: Female, 66 years old. Left breast cancer. TECHNIQUE: Vancleave node localization using radionuclide methods of the LEFT breast(s) was performed following subcutaneous administration of 1.1 mCi of of sulfur colloid Tc-99m. FINDINGS: 1.1 mCi of technetium labeled sulfur colloid was injected subcutaneously in 4 equal aliquots in the periareolar region of the left breast. NM/Lymph Node Injection Only IMPRESSION: 1.1 mCi of technetium labeled sulfur colloid was injected subcutaneously in 4 equal aliquots in the periareolar region of the left breast for sentinel node imaging. Electronically Signed: Devendra Brennan MD at 12:27 EDT ,
[2022-07-16] MEDS: Cefazolin 2 GM in 0.9% Normal Saline 100 ML IV (11:21)
[2022-07-16] MEDS: 0.9% Normal Saline (Pres. free 10 ML Vial (11:35)
[2022-07-16] MEDS: Isosulfan Blue 1% 5 ML Vial (11:35)
[2022-07-16] MEDS: Lidocaine 2% /Epi 1:100 (50ml) 50 ML Vial (11:44)
--- NOTE | 2022-07-16 13:12 | PCM.OPRPT ---
Report of Operation Date of Procedure: 07/16/22 Pre-Operative Diagnosis: left breast DCIS Post-Operative Diagnosis: same, pathology pending Surgery/Procedure Performed:: left breast mastectomy with left axillary sentinel lymph node biopsy Description of Surgical Findings:: large mass of upper outer quadrant of left breast with possible hematoma Surgeon: Susan Morocho Type of Anesthesia: General Anesthesiologist: Forest Fernandez Specimen's removed: left breast, left axillary lymph fay tissue Drains: 2 15 Fr AIDAN Drains - one in left axilla, one in mastectomy bed Estimated Blood Loss (mL): 250 Fluids Replaced: 1400 ml Description of Procedure: Operation: left mastectomy and left axillary sentinel lymph node biopsy Operation was performed with curative intent: yes Resection was performed within the boundaries of the axillary vein, chest wall (serratus anterior muscle) and latissimus dorsi muscle: yes Nerves identified and preserved during dissection (select all that apply): long thoracic nerve, thoracodorsal nreve, branches of intercostobrachial nerves Level III nodes were removed: no After informed consent was given the patient was brought to the Operating Room. Appropriate time out protocol was followed. She was then placed in the supine position on the operating room table. She was then placed under general anesthesia. 3 cc of isosulfan blue dye mixed 50:50 with normal saline was then injected into the periareolar area - Sappey's plexus and in and around the biopsy cavity with a 25 g needle. Gentle massage was then done for a few minutes. The patient's left chest and neck area was then prepped with a sterile surgical skin preparation and appropriate sterile surgical drapes were placed. The skin incision was marked out with a marking pen to ensure inclusion of all biopsy sites. There was a large mass - about 5 cm - of upper outer quadrant of left breast. The incision was made in an elliptical fashion to include the nipple/areolar complex and the large mass that seemed adherent to the skin. The skin incision was made with a 10 blade scalpel and carried through to the subcutaneous tissues using electrocautery. Any hemorrhage was controlled with electrocautery. The medial and superior skin flaps were then created by the subcutaneous fat from the breast tissue using electrocautery. Any bleeding vessels were controlled with electrocautery. Larger vessels were ligated with ligaclips. The superior flap was created first. Dissection continued to the level of the right lateral sternal border. The superior level of dissection was carried to the clavipectoral fascia. The inferior skin flap was then developed in the same fashion and the breast tissue was , to its inferior border of the breast, from the subcutaneous fat. The entire breast tissue and the pectoralis fascia were then from the pectoralis muscles starting medially and continuing laterally. The dissection included the interpectoral fay tissue. Once dissection was achieved to the later aspect of the breast, then the search for sentinel lymph nodes was done. The Neoprobe was brought into the operative field. The 10 second count over the cancer site was 1547. The 10 second count over the abdomen was 3. The 10 second count in the axilla was 168. Blunt dissection was then conducted into the axillary fossa to palpate out any axillary lymph nodes. Blue lymphatic channels were also followed to its lymphatic drainage area. Two palpable nodular tissue lesions were palpated out and appeared blue in coloration. This lymph fay tissue was dissected from the surrounding tissues and the vascular pedicles were ligated with ligaclips. Once from the tissue, it was brought out of the wound and the Neoprobe was directed to this tissue for which the 10 second count of the tissue was 154. The lymph tissue was forwarded to pathology. Two lymph nodes were found negative for cancer. Additional lymph fay tissue was forwarded to the laboratory. Hemostasis of the area of dissection was then achieved with electrocoagulation. The Neoprobe was then placed in the axillary cavity and the 10 second count in the axilla was 6. The remainder of the breast was then from the chest wall. The specimen was forwarded to pathology for analysis. The mastectomy bed was vigorously irrigated with sterile water. Karel was applied to the axilla and the mastectomy bed. One 15 Fr drain was placed in the axilla and another was placed along the mastectomy bed and these drains were brought out through separate skin incisions and sutured to the skin using nylon suture. The superior and inferior skin flaps were then approximated together using interrupted vicryl suture at the dermis. The skin incision was then reapproximated with 4-0 monocryl in a running subcuticular fashion. Cavilon and steristrips were then placed to reinforce the skin closure and proper sterile dressings were applied. Patient was extubated and was brought to Recovery Room in stable condition. Complications none noted Admit VTE Documentation VTE Present on Admission: Yes VTE Mechan Device Prophylaxis: SCD's
--- NOTE | 2022-07-16 15:44 | SUR.PHASEII ---
instructed and demonstrated to and daughter how to empty and record yesenia drains. instructed them to take the record log with them to Dr Cortez office on Friday
== END 2022-07-16 17:32 | disposition home or self-care (01) ==
LOC: SDC 08:51 → AC 08:52
PROVIDERS: Anesthesiology; PCP Nurse Practitioner; Referring Provider Surgery; Visit Provider Surgery
PROC: (CPT 19307; principal; 2022-07-16 11:15)
DX: D05.12 Intraductal carcinoma in situ of left breast (principal); I25.10 Atherosclerotic heart disease of native coronary artery without angina pectoris; E78.5 Hyperlipidemia, unspecified; M10.9 Gout, unspecified; Z79.82 Long term (current) use of aspirin; Z79.899 Other long term (current) drug therapy; Z87.891 Personal history of nicotine dependence; Z80.3 Family history of malignant neoplasm of breast; Z95.1 Presence of aortocoronary bypass graft; Z95.3 Presence of xenogenic heart valve; Z78.0 Asymptomatic menopausal state
CPT/HCPCS: 19101; 38525; 00400; 36415; 38792; 80048; 85027; 88305; 88307; 88309; 88325; 88331; 88332; 88341; 88342; 93005; A9541; J7050; J7120; J2405; J3490; Q9968

== ENCOUNTER → 2022-11-11 | Outpatient (CLI) | payer MEDICARE, SELFPAY ==
[2022-06-12 09:37] VITALS: BMI 30.4
--- NOTE | 2022-11-11 14:02 | ECHOD_ITS ---
Reason For Study: VALVE REPLACEMENT Procedure This was a 2D Doppler, Color Flow transthoracic echocardiogram. Exam performed in department. Left Ventricle Normal LV size. Left ventricular systolic function is normal. The estimated ejection fraction is 60 %. Stage 1 diastolic dysfunction. Post operative septal motion. No regional wall motion abnormalities noted. Right Ventricle Normal RV size. Normal systolic function. Atria Normal left atrium. Normal right atrium. Mitral Valve Normal mitral valve. Tricuspid Valve Normal tricuspid valve. Mild tricuspid valve insufficiency. Pulmonary artery systolic pressure is 24 mmHg. Aortic Valve Mean aortic valve gradient 7 mmHg. Bioprosthetic aortic valve functioning normally. Pulmonic Valve The pulmonic valve is not well visualized. Great Vessels Normal aortic root. The pulmonary artery is normal size. Normal inferior vena cava. Pericardium/Pleural No pericardial effusion. MMode/2D Measurements & Calculations LVIDd: 3.9 cm IVSd: 0.91 cm LVOT diam: 1.9 cm LVIDs: 2.7 cm LVPWd: 0.89 cm LVOT area: 2.7 cm2 RVDd: 3.4 cm FS: 32.3 % Ao root diam: 3.3 cm LAV(MOD-bp): 27.5 ml LVAd ap4: 34.8 cm2 LAV(MOD-bp) Indexed: 14.5 ml/m2 LVLd ap4: 8.2 cm LAV(MOD-sp2): 23.9 ml EDV(MOD-sp4): 116.5 ml LAV(MOD-sp4): 30.8 ml EDV(sp4-el): 124.7 ml LVAs ap4: 19.0 cm2 LVLs ap4: 6.9 cm ESV(MOD-sp4): 44.0 ml ESV(sp4-el): 44.5 ml EF(MOD-sp4): 62.2 % EF(sp4-el): 64.3 % SV(MOD-sp4): 72.5 ml SV(sp4-el): 80.1 ml LA A4 area: 13.8 cm2 LA dimension(2D): 3.7 cm RA A4 area: 12.5 cm2 Time Measurements MV dec time: 0.24 sec Doppler Measurements & Calculations MV E max johnson: 54.6 cm/sec Lat Peak E' Johnson: 13.9 cm/sec Med Peak E' Johnson: 6.0 cm/sec MV A max johnson: 100.0 cm/sec E/E' lat: 3.9 E/E' med: 9.1 MV E/A: 0.55 Ao V2 max: 170.9 cm/sec LV V1 max: 93.9 cm/sec SV(LVOT): 51.3 ml Ao max P.7 mmHg LV V1 max P.5 mmHg Ao V2 mean: 123.8 cm/sec LV V1 mean P.0 mmHg Ao mean P.9 mmHg LV V1 mean: 66.5 cm/sec Ao V2 VTI: 31.3 cm LV V1 VTI: 19.1 cm AV (velocity ratio): 0.61 RODRIGUEZ(I,D): 1.6 cm2 RODRIGUEZ(V,D): 1.5 cm2 PA V2 max: 89.1 cm/sec TR max johnson: 231.3 cm/sec TR max P.4 mmHg ECHO/Echo Complete Interpretation Summary Normal LV size. Left ventricular systolic function is normal. The estimated ejection fraction is 60 %. Stage 1 diastolic dysfunction. Compared to the previous there has been an interval aortic valve replacement Ordering Physician: Nelson Dickens/Miki Mendoza Referring Physician: MARIAJOSE VALENZUELA Performed By: Margy Bañuelos RDCS
== END | disposition home or self-care (01) ==
PROVIDERS: PCP Nurse Practitioner; Visit Provider Nurse Practitioner Family
DX: I25.2 Old myocardial infarction (principal); Z95.3 Presence of xenogenic heart valve
CPT/HCPCS: 93306

== ENCOUNTER → 2025-04-11 | Outpatient (CLI) | payer MEDICARE, SELFPAY ==
[2022-06-12 09:37] VITALS: BMI 30.4
[2025-04-11 12:00] LABS: Cholesterol 154 mg/dL (<=200); Low Density Lipoprotein Calc. 77 mg/dL; Triglycerides 114 mg/dL; Very Low Density Lipoprotein 23 mg/dL (5-40); cholesterol:hdl ratio screen 2.84
[2025-04-11 12:01] LABS: AST(SGOT) 81 U/L (<=31); Alanine Aminotransfer ALT/SGPT 81 U/L (<=34); Albumin, Serum 4.1 g/dL (3.4-4.8); Alkaline Phosphatase 114 U/L (35-104); Bilirubin, Direct 0.10 mg/dL (0.00-0.30); Globulin 4.4 g/dL (2.2-4.2)
== END | disposition home or self-care (01) ==
PROVIDERS: PCP Nurse Practitioner; Referring Provider Student in an Organized Health Care Education/Training Program; Visit Provider Student in an Organized Health Care Education/Training Program
DX: E78.5 Hyperlipidemia, unspecified (principal)
CPT/HCPCS: 36415; 80061; 80076